=== PATIENT | male | born 1950 | race Caucasian/White ===

== ENCOUNTER → 2017-03-14 12:50 | Outpatient (CLI) | payer MEDICARE, OTHER, SELFPAY ==
[2017-03-10 16:32] LABS: BUN 14 mg/dL (7-18); Creatinine, Serum 0.89 mg/dL (0.70-1.30); EST Glomerular Filtration Rate 90 mL/min (>60); Est Glom Filt Rate - Afr Amer 109 mL/min (>60)
--- NOTE | 2017-03-14 12:54 | CT_ITS ---
STUDY: CTA OF THE ABDOMINAL AORTA REASON FOR EXAM: Male, 66 years old. Follow-up aortic aneurysm stent placement. RADIATION DOSAGE (If Supplied By Facility): CTDIvol = ( 25.45 ) mGy, DLP = ( 1279.17 ) mGycm TECHNIQUE: Axial CT angiography multi-detector data acquisition was obtained from the diaphragm to the ischial tuberosities following intravenous administration of 100ML ml of Isovue 370 contrast. Axial images and MIP images were reconstructed from the axial data set. Post-processing of the angiographic images was performed, with multiplanar reformation and 3D reconstruction. Individualized dose optimization techniques were used for this CT. TECHNICAL QUALITY: Good COMPARISON: CTA of the abdomen, July 12, 2016. Descriptors of Narrowing: None (0%) Mild (< 50%) Moderate (50-70%) Severe (70-90%) Subtotal/Total Occlusion (90-100%) Non-Evaluable (technically non-diagnostic FINDINGS: Abdominal aorta: Minimal atherosclerotic changes of the upper abdominal aorta. There is an aortic stent beginning at the level of the diaphragm which extends down to just below the level of the off take off of the renal arteries. This is patent. There is a aortobiiliac stent arising 2.4 cm below the lower edge of the superior stent. Contrast is seen within the stent. There is no extravasation of contrast outside the confines of the stent. The fusiform infrarenal aneurysm measuring 4.8 x 5 cm is occluded around the stent. Celiac and superior mesenteric arteries: No demonstrated narrowing. Inferior mesenteric artery: The origin of the KEYANA is not visualized. Right renal artery(arteries): No demonstrated narrowing. Left renal artery(arteries): No demonstrated narrowing. Right common iliac artery: No demonstrated narrowing. Right external iliac artery: Atherosclerotic changes with mild stenosis. Right internal iliac artery: Atherosclerotic changes with mild stenosis. Left common iliac artery: No demonstrated narrowing. Left external iliac artery: Atherosclerotic changes with mild stenosis. Left internal iliac artery: Atherosclerotic changes with mild stenosis. Lung bases are clear. The heart appears normal in size. The liver is mildly enlarged and demonstrates mild fatty infiltration. There is no mass. Normal gallbladder and biliary ductal system. There is mild splenomegaly. Normal pancreas. Normal adrenal glands. Normal kidneys. Normal IVC and retroperitoneum. Normal stomach. Normal small bowel. Normal colon. Normal appendix. The deep pelvic structures are incompletely visualized due to scatter artifact from a left artificial hip. The urinary bladder appears grossly unremarkable. There are calcifications centrally within a minimally enlarged prostate. There is no pelvic lymphadenopathy. No free air or free fluid is seen within the peritoneal cavity. There is an umbilical hernia of omental fat. There are bilateral inguinal hernias of omental fat. There are degenerative changes of the lumbar spine. CT/CT ANGIO ABD&PEL W/O&W/DYE IMPRESSION: 1. Interval placement of a aortobiiliac stent. The stent is patent. The fusiform infrarenal abdominal aortic aneurysm is occluded. There is no evidence of leakage of contrast outside the confines of the stent. 2. Patent upper abdominal aortic stent, not seen on prior study. 3. No other major change in findings from the previous exam. Electronically Signed: Bebeto Gomez DO at 16:58 EST Tel [phone], Service support ,
== END ==
PROVIDERS: Family Provider Family Medicine; PCP Family Medicine; Visit Provider Surgery Vascular Surgery
DX: I71.4 Abdominal aortic aneurysm, without rupture (principal); I10 Essential (primary) hypertension; Z85.05 Personal history of malignant neoplasm of liver; E78.00 Pure hypercholesterolemia, unspecified
CPT/HCPCS: 36415; 74174; 82565; 84520; Q9967

== ENCOUNTER → 2017-03-17 13:43 | Outpatient (CLI) | payer MEDICARE, OTHER, SELFPAY ==
--- NOTE | 2017-03-19 11:35 | LEAS ---
Arterial Study - Arterial Study Arterial Study: Date of scan 03/17/[address] Shelley Indication history of aortic stent with hypertension hyperlipidemia previous smoker Interpretation Right lower extremity normal pulsatile flow at the ankle up to the digits duplex with triphasic flow at both vessels at the ankle with an IVONNE 1.1 for the posterior tibial 1.20 the dorsalis pedis brachial index 0.74 next Left lower extremity normal pulsatile flow noted at the ankle duplex showing triphasic flow both vessels at the at the ankle with an IVONNE 1.03 the posterior tibial 0.9 for the dorsalis pedis. Digital brachial index 0.91 In pression: 1. Bilateral lower extremities with no evidence of significant arterial occlusive disease at rest with an IVONNE 1.14 on the right 1.03 on the left with bilateral triphasic flow
== END ==
PROVIDERS: Family Provider Family Medicine; PCP Family Medicine; Visit Provider Surgery Vascular Surgery
DX: I71.4 Abdominal aortic aneurysm, without rupture (principal); I10 Essential (primary) hypertension; Z85.05 Personal history of malignant neoplasm of liver; E78.00 Pure hypercholesterolemia, unspecified; I70.213 Atherosclerosis of native arteries of extremities with intermittent claudication, bilateral legs
CPT/HCPCS: 93922

== ENCOUNTER → 2017-03-24 15:34 | Outpatient (CLI) | payer MEDICARE, OTHER, SELFPAY ==
[2017-03-24 18:32] LABS: Absolute Lymphocyte Count 1.33 X10^3/ul (0.83-4.51); Absolute Neutrophil Count 3.4 X10^3/uL (2.0-7.7); Basophil# 0.03 X10^3/uL; Basophil% 0.6 % (0-1); Eosinophils% 3.7 % (0-5); Hematocrit 40.3 % (40-54); Hemoglobin 13.4 g/dl (13.0-16.5); Lymphocyte # 1.33 X10^3/ul (4.0); Lymphocyte % 24.7 % (19-41); Mean Corp Hgb Conc 33.3 g/gl (32-36); Mean Corpuscular Hgb 32.9 pg (27.0-32.0); Mean Platelet Vol. 10.7 fl (6.2-12.0); Monocyte# 0.46 X10^3/uL; Monocyte% 8.5 % (0-10); Neutrophil # 3.36 X10^3/uL (2.7-7.7); Neutrophil % 62.3 % (47-70); Platelet Count 166 K/mm3 (150-450); RBC Distribution Width CV 14.2 % (11.6-14.6); RBC Distribution Width SD 50.3 fl (35.1-43.9); Red Blood Count 4.07 M/mm3 (4.6-6.2); White Blood Count 5.4 K/mm3 (4.4-11.0)
[2017-03-24 18:51] LABS: Microalbumin,Random Urine 9.6 mg/L (NO RANGE EST.)
[2017-03-24 18:54] LABS: POSITIVE COUNT NO; POSITIVE DIFFERENTIAL NO; POSITIVE MORPHOLOGY NO
[2017-03-24 19:00] LABS: Hemoglobin A1c 6.4 % (4.2-6.3)
[2017-03-24 19:04] LABS: ALB/GLOB Ratio 0.6 RATIO (0.9-2.4); AST(SGOT) 75 U/L (15-37); Alanine Aminotransfer ALT/SGPT 77 U/L (16-61); Albumin, Serum 3.5 g/dL (3.2-5.0); Alkaline Phosphatase 102 U/L (45-117); Anion Gap 12 (5-15); BUN 17 mg/dL (7-18); BUN/Creat Ratio 19.6 RATIO (10-20); Calcium,Total 9.1 mg/dL (8.5-10.1); Chloride 106 mmol/L (98-107); Cholesterol 200 mg/dL (200); Creatinine, Serum 0.87 mg/dL (0.70-1.30); EST Glomerular Filtration Rate 93 mL/min (>60); Est Glom Filt Rate - Afr Amer 113 mL/min (>60); GGTP 417 U/L (15-85); Globulin 5.4 g/dL (2.2-4.2); Glucose 126 mg/dL (74-106); High Density Lipoprotein 36 mg/dL; Potassium 3.9 mmol/L (3.5-5.1); Protein, Total 8.9 g/dL (6.4-8.2); Sodium Level 140 mmol/L (136-145); Thyroid Stim Hormone (TSH) 3.34 uIU/mL (0.358-3.74); Triglycerides 230 mg/dL; Very Low Density Lipoprotein 46 mg/dL (5-40)
== END ==
PROVIDERS: Family Provider Family Medicine; PCP Family Medicine; Visit Provider Family Medicine
DX: Z00.00 Encounter for general adult medical examination without abnormal findings (principal); E88.81 Metabolic syndrome and other insulin resistance; K76.9 Liver disease, unspecified
CPT/HCPCS: 36415; 80053; 80061; 82043; 82570; 82977; 83036; 84443; 85025

== ENCOUNTER → 2017-03-28 09:39 | Outpatient (CLI) | payer MEDICARE, OTHER, SELFPAY ==
--- NOTE | 2017-03-28 09:43 | US_ITS ---
STUDY: ABDOMINAL ULTRASOUND - RIGHT UPPER QUADRANT REASON FOR VISIT: Male, 66 years old. Hepatomegaly. Known MILNER. TECHNIQUE: Ultrasound evaluation of the right upper quadrant was performed with real-time and static clarke-scale imaging. TECHNICAL QUALITY: Adequate. COMPARISON: None. FINDINGS: Liver: The liver is mildly enlarged and measures 18.7 cm. There is increased echogenicity consistent with fatty infiltration. The bile ducts are within normal limits. There is hepatic color flow. The direction of portal flow is hepatopetal. There is no demonstrated mass lesion. Gallbladder: Normal distended gallbladder. The gallbladder wall measures 2.2 mm. There is a negative sonographic Rashid's sign. There is no pericholecystic fluid. There are no gallstones. Common Bile Duct (C.B.D.): The common bile duct measures 2.7 mm. Pancreas: There is nonvisualization of the pancreas due to overlying bowel gas. Right Kidney: Normal size of the right kidney. The right kidney measures 13.3 cm x 6 x 4.3 cm. Normal renal cortex. The right cortex measures 1.4 cm. There is no demonstrated renal mass or cyst. There is no right hydronephrosis. US/Abdomen Limited IMPRESSION: Mild hepatomegaly and fatty infiltration of the liver. Electronically Signed: Chapito Burt MD at 13:51 EST Tel [phone], Service support ,
== END ==
PROVIDERS: Family Provider Family Medicine; PCP Family Medicine; Visit Provider Family Medicine
DX: K76.9 Liver disease, unspecified (principal)
CPT/HCPCS: 76705

== ENCOUNTER 2017-06-25 06:55 | Day surgery (SDC) | payer MEDICARE, OTHER, SELFPAY ==
--- NOTE | 2017-06-25 | COLBX_PTH ---
PATIENT: NARCISO SCHMIDT LOC: EN U#:[id number] AGE/SX: 67/M ROOM: RE06/25/[address]: Dr. Lavon Gongora MD : 1950 BED: DIS: 06/25/2017 SPEC #: [id number] RECD: 06/25/17 13:01 STATUS: ADA JAMEL #: [id number] [place]: 06/25/17 00:[address]: Lavon Gongora DEPT: SURGICAL PATHOLOGY RECD BY: Fawn Tang ENTERED: 06/25/17 13:13 SP TYPE: COLON BX OTHR DR: Dr. Vitaliy Loredo MD Tissues: Rectum, NOS Procedures: Surgery Specimen Level IV HEADER OPERATION: Colonoscopy PRE-OP DIAGNOSIS: History polyps TISSUE SUBMITTED: Rectal polyps biopsy (2) MICROSCOPIC DIAGNOSIS Rectal polyps, biopsy: Fragments of tubular adenoma. SJ:shailesh 06/26/17 MICROSCOPIC DESCRIPTION Slides are reviewed. GROSS DESCRIPTION Received in fixative is one container labeled with the patient's name and designated rectal polyps biopsy. The specimen consists of multiple irregular fragments of light boswell soft tissue that in aggregate measure 1.2 x 0.4 x 0.1 cm. The specimen is totally submitted in one cassette. / SJ:shailesh 06/25/17 TC:1 CPT: 69945
[2017-06-25 07:17] VITALS: BP 120/75; PULSE 54; RESP 14; TEMP 36.2; O2SAT 97; BMI 32.8
--- NOTE | 2017-06-25 08:25 | PCM.HP.STD ---
Problem List (1) Personal history of colonic polyps Status: Acute History of Present Illness Date of Admission: 06/25/17 The patient is a 67 year old M who presents for colonoscopy. Patient had a colonoscopy approximately 5-[address] Rashid and was noted to have polyps at that time. Recommended that he have a follow-up colonoscopy within 5 years. Past Medical History Allergies CAT HAIR Allergy (Uncoded 06/20/17 15:59) Itching Home Medications: Ambulatory Orders Medication Instructions Recorded Metformin(XR) [Glucophage Xr] 1,000 mg PO BID 03/16/16 Multivitamin [Multiple Vitamins] 1 each PO DAILY 06/20/17 Nebivolol HCl [Bystolic (Beta 20 mg PO DAILY 06/20/17 Yolande)] Smoking Status: Former smoker Tobacco Use: Cigarettes Review of Systems Cardiovascular: Denies: Chest Pain, Chest Pressure, Chest Tightness, Palpitations Respiratory: Denies: Cough, Hemoptysis, Shortness of breath at rest, Shortness of breath upon exertion, Wheezing Gastrointestinal: Denies: Abdominal Pain, Constipation, Diarrhea, Hematemesis, Nausea, Melena, Vomiting VTE Information - Inpt Only VTE Present on Admission: No VTE Mechan Device Prophylaxis: None VTE Pharm Prophylaxis ordered?: No Reason prophylaxis not ordered:: Treatment Not Indicated Patient Problems: Active and Suspected Problems Personal history of colonic polyps (Acute) - Physical Exam Lungs: Clear to auscultation Cardiovascular: Regular rate, Regular Rhythm, No murmurs Abdomen: Bowel Sounds Present, Soft, Non Tender, Non-Distended Vital Signs Temp Pulse Resp BP Pulse Ox 97.2 F L 54 L 14 120/75 97 06/25/17 07:17 06/25/17 07:17 06/25/17 07:17 06/25/17 07:17 06/25/17 07:17 Oxygen Delivery Method Room Air Weight: 229 lb 0.964 oz Body Mass Index (BMI) 32.8 Assessment/Plan Active and Suspected Problems Personal history of colonic polyps (Acute) My plan is perform a colonoscopy. Risk benefits were reviewed with the patient prior to the procedure and he agrees to proceed.
--- NOTE | 2017-06-25 08:28 | PCM.OPRPT ---
Problem List (1) Personal history of colonic polyps Status: Acute Report of Operation Date of Procedure: 06/25/17 Pre-Operative Diagnosis: Z86.010 personal history of colonic polyps Post-Operative Diagnosis: Same Surgery/Procedure Performed:: 54412 colonoscopy with ablation of tumors of the rectum Type of Anesthesia:: MAC Anesthesiologist: Sang Pool Description of Procedure: Patient was brought into the endoscopy suite. Placed in the left lateral decubitus position. Was given graded anesthesia. Colonoscope was inserted into the rectum. The scope was directed through the sigmoid colon, descending colon, transverse colon, ascending colon, to the cecum. Operative findings: 1. Cecum: Normal appearance no mass lesions normal ileocecal valve. 2. Ascending colon: Normal appearance no mass lesions. 3. Transverse colon: Normal appearance no mass lesions. 4. Descending colon: Normal appearance no mass lesions. 5. Sigmoid colon: Normal appearance no mass lesions scattered diverticuli were identified. 6. Rectum: 2 small polyps were identified. These were ablated with multiple biopsies down to the mucosal subsurface. They were placed in a single jar of the rectum. Good hemostasis was noted. Rest of the rectum appeared normal. He was noted to have a few internal hemorrhoids. Scope was withdrawn digital rectal exam was performed showing a smooth prostate with no masses and no masses in the anus. Patient will need to have another colonoscopy in 3 years. - Admit VTE Documentation VTE Present on Admission: No VTE Mechan Device Prophylaxis: SCD's, None Reason prophylaxis not ordered:: Treatment Not Indicated
[2017-06-25 08:29] VITALS: BP 114/59; BP 120/75; PULSE 55; RESP 16; TEMP 36.1; O2SAT 100
[2017-06-25 08:30] VITALS: BP 120/75; BP 125/64; PULSE 52; RESP 16; O2SAT 96
[2017-06-25 08:40] VITALS: BP 120/75; BP 133/73; PULSE 50; RESP 16; O2SAT 98
[2017-06-25 08:45] VITALS: BP 120/75; BP 134/81; PULSE 48; RESP 16; TEMP 36.3; O2SAT 97
[2017-06-25 09:04] VITALS: BP 120/75
== END 2017-06-25 09:23 | disposition home or self-care (01) ==
LOC: EN 06:56 → AC 06:57
PROVIDERS: Family Provider Family Medicine; PCP Family Medicine; Visit Provider Surgery
PROC: 0DJD8ZZ Inspection of Lower Intestinal Tract, Via Natural or Artificial Opening Endoscopic (ICD-10-PCS; CPT 45378; principal; 2017-06-25 07:55)
DX: D12.8 Benign neoplasm of rectum (principal); Z86.010 Personal history of colon polyps; I10 Essential (primary) hypertension; G47.30 Sleep apnea, unspecified; E88.81 Metabolic syndrome and other insulin resistance; Z87.891 Personal history of nicotine dependence; Z79.84 Long term (current) use of oral hypoglycemic drugs; Z79.899 Other long term (current) drug therapy
CPT/HCPCS: 45388; 88305; J7120; J1610

== ENCOUNTER → 2017-09-22 14:27 | Outpatient (CLI) | payer MEDICARE, OTHER, SELFPAY ==
[2017-09-22 15:19] LABS: Absolute Lymphocyte Count 1.35 X10^3/ul (0.83-4.51); Absolute Neutrophil Count 3.1 X10^3/uL (2.0-7.7); Basophil# 0.03 X10^3/uL; Basophil% 0.6 % (0-1); Eosinophil# 0.21 X10^3/uL; Eosinophils% 4.1 % (0-5); Hematocrit 40.4 % (40-54); Hemoglobin 13.5 g/dl (13.0-16.5); Lymphocyte # 1.35 X10^3/ul (4.0); Lymphocyte % 26.3 % (19-41); Mean Corp Hgb Conc 33.4 g/gl (32-36); Mean Corpuscular Volume 98.8 fL (80-94); Mean Platelet Vol. 10.1 fl (6.2-12.0); Monocyte% 7.8 % (0-10); Neutrophil # 3.14 X10^3/uL (2.7-7.7); POSITIVE COUNT NO; POSITIVE DIFFERENTIAL NO; POSITIVE MORPHOLOGY NO; Platelet Count 138 K/mm3 (150-450); RBC Distribution Width CV 13.6 % (11.6-14.6); RBC Distribution Width SD 48.6 fl (35.1-43.9); Red Blood Count 4.09 M/mm3 (4.6-6.2); White Blood Count 5.1 K/mm3 (4.4-11.0)
[2017-09-22 15:29] LABS: ALB/GLOB Ratio 0.7 RATIO (0.9-2.4); AST(SGOT) 60 U/L (15-37); Alanine Aminotransfer ALT/SGPT 62 U/L (16-61); Albumin, Serum 3.5 g/dL (3.2-5.0); Alkaline Phosphatase 80 U/L (45-117); Anion Gap 11 (5-15); BUN 11 mg/dL (7-18); BUN/Creat Ratio 12.2 RATIO (10-20); Calcium,Total 8.5 mg/dL (8.5-10.1); Chloride 107 mmol/L (98-107); EST Glomerular Filtration Rate 89 mL/min (>60); Est Glom Filt Rate - Afr Amer 107 mL/min (>60); Globulin 5.1 g/dL (2.2-4.2); Glucose 116 mg/dL (74-106); Potassium 4.5 mmol/L (3.5-5.1); Protein, Total 8.6 g/dL (6.4-8.2); Sodium Level 140 mmol/L (136-145); Triglycerides 243 mg/dL
[2017-09-22 15:36] LABS: Hemoglobin A1c 5.5 % (4.2-6.3)
== END ==
PROVIDERS: Family Provider Family Medicine; PCP Family Medicine; Visit Provider Family Medicine
DX: K76.9 Liver disease, unspecified (principal); E88.81 Metabolic syndrome and other insulin resistance
CPT/HCPCS: 36415; 80053; 83036; 84478; 85025

== ENCOUNTER → 2018-03-02 14:43 | Outpatient (CLI) | payer MEDICARE, OTHER, SELFPAY ==
[2018-03-02 16:31] LABS: Anion Gap 10 (5-15); BUN 17 mg/dL (7-18); BUN/Creat Ratio 18.3 RATIO (10-20); Calcium,Total 8.7 mg/dL (8.5-10.1); Chloride 107 mmol/L (98-107); Creatinine, Serum 0.93 mg/dL (0.70-1.30); EST Glomerular Filtration Rate 86 mL/min (>60); Est Glom Filt Rate - Afr Amer 104 mL/min (>60); Glucose 137 mg/dL (74-106); Potassium 4.1 mmol/L (3.5-5.1); Sodium Level 139 mmol/L (136-145)
--- OUTSIDE RECORDS SUMMARY | 2018-05-05 02:55 | XMS RPT_ITS ---
:1950 Author Organization OHIP Support Name Relationship Address Phone JESSICA BABIN Unavailable [address] + [place] [address] R Unavailable Unavailable Unavailable GISEL BABINANNE Unavailable [address] + [place] [address] R Unavailable Unavailable Unavailable BABINGISELJESSICA Unavailable [address] + [place] [address] R Unavailable Unavailable Unavailable TALYA JESSICA Unavailable [address] + [place] [address] R Unavailable Unavailable Unavailable LEONOR BABINE Unavailable [address] + [place] [address] R Unavailable Unavailable Unavailable GISEL BABINANNE Unavailable [address] + [place] [address] R Unavailable Unavailable Unavailable GISEL BABINANNE Unavailable [address] + [place] [address] R Unavailable Unavailable Unavailable TALYA JESSICA Unavailable [address] + [place] [address] R Unavailable Unavailable Unavailable TALYA JESSICA Unavailable [address] + [place] [address] R Unavailable Unavailable Unavailable TALYA JESSICA Unavailable [address] + [place] [address] R Unavailable Unavailable Unavailable TALYA JESSICA Unavailable [address] + [place] [address] R Unavailable Unavailable Unavailable Care Team Providers Name Role Phone RANJIT INIGUEZ Referring Unavailable NAVA CARDONA (PT) Attending Unavailable RANJIT INIGUEZ Referring Unavailable Vitaliy Loredo Attending Unavailable Vitaliy Loredo Primary Care Unavailable Chaka Shelley Attending Unavailable Chaka Shelley Referring Unavailable Loredo, Vitaliy Primary Care Unavailable Chaka Shelley Attending Unavailable ShelleyChaka richter Referring Unavailable Loredo, Vitaliy Primary Care Unavailable Loredo, Vitaliy Attending Unavailable Loredo, Vitaliy Primary Care Unavailable Loredo, Vitaliy Attending Unavailable Loredo, Vitaliy Referring Unavailable Loredo, Vitaliy Primary Care Unavailable Nurse, Surgery Attending Unavailable Loredo, Vitaliy Referring Unavailable Nurse, Surgery Attending Unavailable Loredo, Vitaliy Referring Unavailable Fransisca, Lavon Attending Unavailable Loredo, Vitaliy Primary Care Unavailable [place], Lavon Referring Unavailable [place], Lavon Attending Unavailable [place], Lavon Referring Unavailable Loredo, Vitaliy Primary Care Unavailable [place], Lavon Consulting Unavailable [place], Lavon Attending Unavailable Loredo, Vitaliy Referring Unavailable Loredo, Vitaliy Attending Unavailable Loredo, Vitaliy Primary Care Unavailable PROBLEMS PROBLEMS DATE TYPE CONDITION / CODE ATTENDING STATUS SOURCE 03/14/2017 Unknown I71.4 - Chaka Shelley Active [place] Abdominal aortic [facility] aneurysm, [facility] without rupture Repository / I71.4(ICD-10) PROCEDURES PROCEDURES No Procedure Records FoundRESULTS RESULTS BASIC METABOLIC Collected: 03/02/2018 Status: F Source: [place] PROFILE (BMP) 2:46 PM [facility] REPOSITORY TYPE CODE TESTS RESULT OUT OF RANGE REFERENCE UNITS LAB L501.0100 74-106 mg/dL High GLU 137 Result Comment: Fasting Glucose result greater than or equal to 126 mg/dL suggests DIABETES MELLITUS per A.D.A. criteria. Please note revised GLUCOSE reference range effective 2017. LAB L501.1000 7-18 mg/dL Normal BUN 17 LAB L501.1100 0.70-1.30 mg/dL Normal CREAT,SERUM 0.93 Result Comment: The validity of the calculated GFR AND GFRAA in patients over 70 years has not been determined. Clinical correlation is essential. LAB L501.1110 >60 mL/min Normal EST GFR 86 Result Comment: Non- GFR Calc LAB L501.1115 >60 mL/min Normal EST GFR - AA 104 Result Comment: GFR Calc LAB L501.1300 10-20 RATIO Normal BUN/CRE 18.3 LAB L501.2200 8.5-10.1 mg/dL CA Normal 8.7 LAB L501.5300 136-145 mmol/L NA Normal 139 LAB L501.5600 3.5-5.1 mmol/L K Normal 4.1 LAB L501.5900 98-107 mmol/L CL Normal 107 LAB L501.6100 21.0-32.0 mmol/L Normal CO2 22.0 LAB L501.6200 5-15 Normal GAP 10 Performed By: #### L500.2500 #### [facility] [address] [place], [address] CBC W/DIFF, AUTOMATED Collected: 09/22/2017 Status: F Source: [place] 2:30 PM [facility] REPOSITORY TYPE CODE TESTS RESULT OUT OF RANGE REFERENCE UNITS LAB L100.1000 4.4-11.0 K/mm3 Normal WBC 5.1 LAB L100.1200 4.6-6.2 M/mm3 Low RBC 4.09 LAB L100.1300 13.0-16.5 g/dl Normal HGB 13.5 LAB L100.1400 40-54 % Normal HCT 40.4 LAB L100.1500 80-94 fL High MCV 98.8 LAB L100.1600 27.0-32.0 pg High MCH 33.0 LAB L100.1700 32-36 g/gl Normal MCHC 33.4 LAB L100.1810 11.6-14.6 % Normal RDW CV 13.6 LAB L100.1820 35.1-43.9 fl High RDW SD 48.6 LAB L100.1900 150-450 K/mm3 Low PLT 138 LAB L100.2000 6.2-12.0 fl Normal MPV 10.1 LAB L100.2100 47-70 % Normal NEUT% 61.0 LAB L100.2200 19-41 % Normal LY% 26.3 LAB L100.2300 0-10 % Normal MONO% 7.8 LAB L100.2400 0-5 % Normal EO% 4.1 LAB L100.2500 0-1 % Normal BASO% 0.6 LAB L100.2550 0.0-0.9 % Normal IM GRAN % 0.200 Result Comment: IG% - Immature Granulocytes (promyelocytes, myelocytes and metamyelocytes) > 1% indicates that a LEFT SHIFT is Present. LAB L100.2620 2.0-7.7 X10 3/uL Normal Absolute Neut 3.1 LAB L100.2720 0.83-4.51 X10 3/ul Normal Absolute Lymph 1.35 Performed By: #### L100.0100 #### [facility] [place], [address] COMPREHENSIVE METABOLIC Collected: 09/22/2017 Status: F Source: [place] [facility] 2:30 PM [facility] REPOSITORY TYPE CODE TESTS RESULT OUT OF RANGE REFERENCE UNITS LAB L501.0100 74-106 mg/dL High GLU 116 Result Comment: Fasting Glucose result from 100 to 125 mg/dL suggests IMPAIRED HOMEOSTASIS per A.D.A. criteria. Please note revised GLUCOSE reference range effective 2017. LAB L501.1000 7-18 mg/dL Normal BUN 11 LAB L501.1100 0.70-1.30 mg/dL Normal CREAT,SERUM 0.90 Result Comment: The validity of the calculated GFR AND GFRAA in patients over 70 years has not been determined. Clinical correlation is essential. LAB L501.1110 >60 mL/min Normal EST GFR 89 Result Comment: Non- GFR Calc LAB L501.1115 >60 mL/min Normal EST GFR - AA 107 Result Comment: GFR Calc LAB L501.1300 10-20 RATIO Normal BUN/CRE 12.2 LAB L501.1500 6.4-8.2 g/dL High T PROT 8.6 LAB L501.1800 3.2-5.0 g/dL Normal ALB 3.5 LAB L501.1950 2.2-4.2 g/dL High GLOB 5.1 LAB L501.2000 0.9-2.4 RATIO Low A/G 0.7 LAB L501.2200 8.5-10.1 mg/dL CA Normal 8.5 LAB L501.4100 15-37 U/L High AST 60 LAB L501.4305 45-117 U/L Normal ALK P 80 LAB L501.4405 16-61 U/L High ALT 62 LAB L501.4600 0.20-1.00 mg/dL T Normal BILI 1.00 LAB L501.5300 136-145 mmol/L NA Normal 140 LAB L501.5600 3.5-5.1 mmol/L K Normal 4.5 LAB L501.5900 98-107 mmol/L CL Normal 107 LAB L501.6100 21.0-32.0 mmol/L Normal CO2 22.0 LAB L501.6200 5-15 Normal GAP 11 Performed By: #### L500.4050, L501.5000 #### [facility] [address] [place], [address] TRIGLYCERIDES Collected: 09/22/2017 Status: F Source: [place] 2:30 PM [facility] REPOSITORY TYPE CODE TESTS RESULT OUT OF RANGE REFERENCE UNITS LAB L501.5000 mg/dL High TRIG 243 Result Comment: The drugs N-Acetylcysteine and Metamizole may falsely depress this assay. Serum Triglycerides Reference Interval Normal <150 mg/dL Borderline high 150 - 199 mg/dL High 200 - 499 mg/dL Very High > or = 500 mg/dL Performed By: #### L500.4050, L501.5000 #### [facility] [address] [place], [address] HEMOGLOBIN A1C Collected: 09/22/2017 Status: F Source: [place] 2:30 PM [facility] REPOSITORY TYPE CODE TESTS RESULT OUT OF RANGE REFERENCE UNITS LAB L501.9985 4.2-6.3 % Normal HGB A1C 5.5 Performed By: #### L501.9985 #### [facility] [address] [place], [address] SURGERY VISIT REPORT Observed: 08/18/2017 Status: F Source: [place] 12:46 PM [facility] REPOSITORY [facility] [address] [facility] [place] [address] OFFICE VISIT Date of Service: 07/02/17 MR#: [id number] Acct: [id number] Name: NARCISO WALL Rep #: [id number] : 1950 Provider: Lavon Gongora MD Age/Sex: 67/M Location: [facility] Status: Signed Intake Intake Visit Reasons: cscope results Chief Complaint: post c-scope Hide Puller Required: No Is patient in pain?: No Allergies CAT HAIR Allergy (Uncoded 06/20/17 15:59) Itching Medications Metformin(XR) [Glucophage Xr] 1,000 mg PO BID 03/16/16 [History Confirmed 06/25/17] Multivitamin [Multiple Vitamins] 1 ea PO DAILY 06/20/17 [History Confirmed 06/25/17] Nebivolol HCl [Bystolic (Beta Yolande)] 20 mg PO DAILY 06/20/17 [History Confirmed 06/25/17] PFSH Medical History Personal history of colonic polyps (Acute) Surgical History S/P colonoscopy (Acute 06/2017) Social History Smoking Status: Former smoker HPI HPI HPI: NARCISO WALL, is a 67 M who presents to the office today for patient status post a colonoscopy completed on 06/25/2017. Patient was noted to have fragments of a tubular adenoma in his rectum. He is not complaining of any abdominal pains has been moving his bowels effectively. Exam GI Other: Abdomen is soft and nontender Assessment AND Plan Problems 1. Adenomatous polyp of colon, unspecified part of colon D12.6 Plan Patient will need to have another colonoscopy in 3 years. Coding Level of Care Code Off vis,est,level 2 Diagnoses Adenomatous polyp of colon, unspecified part of colon D12.6 Colon polyp type: adenomatous Colon location: unspecified part of colon 08/18/17 1246 <Electronically signed by Lavon Gongora MD> Date Lavon Gongora MD Cosigner Signature: Date (if applicable) CC: Vitaliy Loredo MD OPERATIVE REPORT Observed: 06/25/2017 Status: F Source: [place] 8:32 AM [facility] REPOSITORY [facility] Medical Records Department [address] [place] [address] Operative Report 06/25/17 0828 MR#: [id number] Acct: [id number] Name: NARCISO WALL Rep #: [id number] : 1950 67 From: Lavon Gongora MD PCP: Vitaliy Loredo MD Status: REG [place] Y Location: AC12-1 Problem List (1) Personal history of colonic polyps Status: Acute Report of Operation Date of Procedure: 06/25/17 Pre-Operative Diagnosis: Z86.010 personal history of colonic polyps Post-Operative Diagnosis: Same Surgery/Procedure Performed:: 52719 colonoscopy with ablation of tumors of the rectum Type of Anesthesia:: MAC Anesthesiologist: Sang Pool Description of Procedure: Patient was brought into the endoscopy suite. Placed in the left lateral decubitus position. Was given graded anesthesia. Colonoscope was inserted into the rectum. The scope was directed through the sigmoid colon, descending colon, transverse colon, ascending colon, to the cecum. Operative findings: 1. Cecum: Normal appearance no mass lesions normal ileocecal valve. 2. Ascending colon: Normal appearance no mass lesions. 3. Transverse colon: Normal appearance no mass lesions. 4. Descending colon: Normal appearance no mass lesions. 5. Sigmoid colon: Normal appearance no mass lesions scattered diverticuli were identified. 6. Rectum: 2 small polyps were identified. These were ablated with multiple biopsies down to the mucosal subsurface. They were placed in a single jar of the rectum. Good hemostasis was noted. Rest of the rectum appeared normal. He was noted to have a few internal hemorrhoids. Scope was withdrawn digital rectal exam was performed showing a smooth prostate with no masses and no masses in the anus. Patient will need to have another colonoscopy in 3 years. - Admit VTE Documentation VTE Present on Admission: No VTE Mechan Device Prophylaxis: SCD's, None Reason prophylaxis not ordered:: Treatment Not Indicated 06/25/17 0832 <Electronically signed by Lavon Gongora MD> Date Lavon Gongora MD CC: Lavon Gongora MD; Vitaliy Loredo MD Signed HISTORY AND PHYSICAL Observed: 06/25/2017 Status: F Source: [place] EXAM 8:27 AM [facility] REPOSITORY [facility] Medical Records Department [address] [place] [id number] History and Physical 06/25/17 0825 MR#: [id number] Acct: [id number] Name: NARCISO WALL Rep #: [id number] : 1950 67 From: Lavon Gongora MD PCP: Vitaliy Loredo MD Status: REG [place] Location: [place] [address] Problem List (1) Personal history of colonic polyps Status: Acute History of Present Illness Date of Admission: 06/25/17 The patient is a 67 year old M who presents for colonoscopy. Patient had a colonoscopy approximately 5-[address] Rashid and was noted to have polyps at that time. Recommended that he have a follow-up colonoscopy within 5 years. Past Medical History Allergies CAT HAIR Allergy (Uncoded 06/20/17 15:59) Itching Home Medications: Ambulatory Orders Medication Instructions Recorded Smoking Status: Former smoker Tobacco Use: Cigarettes Review of Systems Cardiovascular: Denies: Chest Pain, Chest Pressure, Chest Tightness, Palpitations Respiratory: Denies: Cough, Hemoptysis, Shortness of breath at rest, Shortness of breath upon exertion, Wheezing Gastrointestinal: Denies: Abdominal Pain, Constipation, Diarrhea, Hematemesis, Nausea, Melena, Vomiting VTE Information - Inpt Only VTE Present on Admission: No VTE Mechan Device Prophylaxis: None VTE Pharm Prophylaxis ordered?: No Reason prophylaxis not ordered:: Treatment Not Indicated Patient Problems: Active and Suspected Problems Personal history of colonic polyps (Acute) - Physical Exam Lungs: Clear to auscultation Cardiovascular: Regular rate, Regular Rhythm, No murmurs Abdomen: Bowel Sounds Present, Soft, Non Tender, Non-Distended Vital Signs Temp Pulse Resp BP Pulse Ox 97.2 F L 54 L 14 120/75 97 06/25/17 07:17 06/25/17 07:17 06/25/17 07:17 06/25/17 07:17 06/25/17 07:17 Oxygen Delivery Method Room Air Weight: 229 lb 0.964 oz Body Mass Index (BMI) 32.8 Assessment/Plan Active and Suspected Problems Personal history of colonic polyps (Acute) My plan is perform a colonoscopy. Risk benefits were reviewed with the patient prior to the procedure and he agrees to proceed. 06/25/17 0827 <Electronically signed by Lavon Gongora MD> Date Lavon Gongora MD [facility] Signature: Date (if applicable) CC: Lavon Gongora MD; Vitaliy Loredo MD Signed COLON BIOPSY (CHOOSE Observed: 06/25/2017 Status: F Source: [facility]) 12:00 AM [facility] REPOSITORY Patient: NARCISO WALL : 1950 (67/M) Acct Num: [id number] Phys: Fransisca GREEN,Lavon Unit Num: [id number] Loc: EN Specimen: Received: 06/25/17 - 1301 Spec Type: COLON BX TISSUES TISSUES: Rectum, NOS GROSS DESCRIPTION Received in fixative is one container labeled with the patient's name and designated rectal polyps biopsy. The specimen consists of multiple irregular fragments of light boswell soft tissue that in aggregate measure 1.2 x 0.4 x 0.1 cm. The specimen is totally submitted in one cassette. / SJ:shailesh 06/25/17 TC:1 CPT: 34078 HEADER OPERATION: Colonoscopy PRE-OP DIAGNOSIS: History polyps TISSUE SUBMITTED: Rectal polyps biopsy (2) MICROSCOPIC DESCRIPTION Slides are reviewed. MICROSCOPIC DIAGNOSIS Rectal polyps, biopsy: Fragments of tubular adenoma. SJ:shailesh 06/26/17 Signed Greyson Paul 06/26/17 <signature on file> Performed By: #### PCOLBX #### [facility] [address] [place], [address] ABDOMEN LIMITED Observed: 03/28/2017 Status: F Source: [place] 9:43 AM [facility] REPOSITORY [facility] Imaging Services [address] [place] [address] Abdomen Limited MR#: [id number] Acct: [id number] Name: NARCISO WALL Rep #: [id number] : 1950 M 66 From: Chapito Burt MD PCP: Vitaliy Loredo MD Status: REG CLI Study: Abdomen Limited Date of Exam: 03/28/17 Exam# [id number] Ordering Dr: Vitaliy Loredo MD STUDY: ABDOMINAL ULTRASOUND - RIGHT UPPER QUADRANT REASON FOR VISIT: Male, 66 years old. Hepatomegaly. Known MILNER. TECHNIQUE: Ultrasound evaluation of the right upper quadrant was performed with real-time and static clarke-scale imaging. TECHNICAL QUALITY: Adequate. COMPARISON: None. FINDINGS: Liver: The liver is mildly enlarged and measures 18.7 cm. There is increased echogenicity consistent with fatty infiltration. The bile ducts are within normal limits. There is hepatic color flow. The direction of portal flow is hepatopetal. There is no demonstrated mass lesion. Gallbladder: Normal distended gallbladder. The gallbladder wall measures 2.2 mm. There is a negative sonographic Rashid's sign. There is no pericholecystic fluid. There are no gallstones. Common Bile Duct (C.B.D.): The common bile duct measures 2.7 mm. Pancreas: There is nonvisualization of the pancreas due to overlying bowel gas. Right Kidney: Normal size of the right kidney. The right kidney measures 13.3 cm x 6 x 4.3 cm. Normal renal cortex. The right cortex measures 1.4 cm. There is no demonstrated renal mass or cyst. There is no right hydronephrosis. US/Abdomen Limited IMPRESSION: Mild hepatomegaly and fatty infiltration of the liver. Electronically Signed: Chapito Burt MD at 13:51 EST Tel [phone], Service support , CC: Vitaliy Loredo MD Data Scientist: Signed MICROALB:CREAT Collected: 03/24/2017 Status: F Source: [place] RATIO,RANDOM UR 3:35 PM [facility] REPOSITORY Order Comment: Order Date: 03/24/17 Order Info: [id number] - [place] TYPE CODE TESTS RESULT OUT OF RANGE REFERENCE UNITS LAB L501.1200 NO RANGE EST. mg/dL Normal UR CREAT 138.00 LAB L502.0500 NO RANGE EST. mg/L Normal 9.6 MICROALBUMIN ,UR LAB L502.0600 <30 mg/g CRE mg/g CRE Normal 7.0 MALB:CREAT Performed By: #### L502.0250, L100.0100, L501.9985, L500.4050, L500.4100, L501.5100, L501.9520 #### [facility] [address] [place], [place], [address] CBC W/DIFF, AUTOMATED Collected: 03/24/2017 Status: F Source: [place] 3:35 PM [facility] REPOSITORY Order Comment: Order Date: 03/24/17 Order Info: 0184-1 - CBCD TYPE CODE TESTS RESULT OUT OF RANGE REFERENCE UNITS LAB L100.1000 4.4-11.0 K/mm3 Normal WBC 5.4 LAB L100.1200 4.6-6.2 M/mm3 Low RBC 4.07 LAB L100.1300 13.0-16.5 g/dl Normal HGB 13.4 LAB L100.1400 40-54 % Normal HCT 40.3 LAB L100.1500 80-94 fL High MCV 99.0 LAB L100.1600 27.0-32.0 pg High MCH 32.9 LAB L100.1700 32-36 g/gl Normal MCHC 33.3 LAB L100.1810 11.6-14.6 % Normal RDW CV 14.2 LAB L100.1820 35.1-43.9 fl High RDW SD 50.3 LAB L100.1900 150-450 K/mm3 Normal PLT 166 LAB L100.2000 6.2-12.0 fl Normal MPV 10.7 LAB L100.2100 47-70 % Normal NEUT% 62.3 LAB L100.2200 19-41 % Normal LY% 24.7 LAB L100.2300 0-10 % Normal MONO% 8.5 LAB L100.2400 0-5 % Normal EO% 3.7 LAB L100.2500 0-1 % Normal BASO% 0.6 LAB L100.2550 0.0-0.9 % Normal IM GRAN % 0.200 Result Comment: IG% - Immature Granulocytes (promyelocytes, myelocytes and metamyelocytes) > 1% indicates that a LEFT SHIFT is Present. LAB L100.2620 2.0-7.7 X10 3/uL Normal Absolute Neut 3.4 LAB L100.2720 0.83-4.51 X10 3/ul Normal Absolute Lymph 1.33 Performed By: #### L502.0250, L100.0100, L501.9985, L500.4050, L500.4100, L501.5100, L501.9520 #### [facility] [address] [facility] [place], [place], [address] HEMOGLOBIN A1C Collected: 03/24/2017 Status: F Source: [place] 3:35 PM [facility] REPOSITORY Order Comment: Order Date: 03/24/17 Order Info: [id number] - A1C TYPE CODE TESTS RESULT OUT OF RANGE REFERENCE UNITS LAB L501.9985 4.2-6.3 % High HGB A1C 6.4 Performed By: #### L502.0250, L100.0100, L501.9985, L500.4050, L500.4100, L501.5100, L501.9520 #### [facility] [address] [facility] [place], [place], [address] COMPREHENSIVE METABOLIC Collected: 03/24/2017 Status: F Source: [facility] 3:35 PM [facility] REPOSITORY Order Comment: Order Date: 03/24/17 Order Info: [id number] - CMP Order Info: [id number] - LIPID Order Info: 2324-2 - GGTP Order Info: 3016-3 - TSH TYPE CODE TESTS RESULT OUT OF RANGE REFERENCE UNITS LAB L501.0100 74-106 mg/dL High GLU 126 Result Comment: Fasting Glucose result greater than or equal to 126 mg/dL suggests DIABETES MELLITUS per A.D.A. criteria. Please note revised GLUCOSE reference range effective 2017. LAB L501.1000 7-18 mg/dL Normal BUN 17 LAB L501.1100 0.70-1.30 mg/dL Normal CREAT,SERUM 0.87 Result Comment: The validity of the calculated GFR AND GFRAA in patients over 70 years has not been determined. Clinical correlation is essential. LAB L501.1110 >60 mL/min Normal EST GFR 93 Result Comment: Non- GFR Calc LAB L501.1115 >60 mL/min Normal EST GFR - AA 113 Result Comment: GFR Calc LAB L501.1300 10-20 RATIO Normal BUN/CRE 19.6 LAB L501.1500 6.4-8.2 g/dL High T PROT 8.9 LAB L501.1800 3.2-5.0 g/dL Normal ALB 3.5 LAB L501.1950 2.2-4.2 g/dL High GLOB 5.4 LAB L501.2000 0.9-2.4 RATIO Low A/G 0.6 LAB L501.2200 8.5-10.1 mg/dL CA Normal 9.1 LAB L501.4100 15-37 U/L High AST 75 LAB L501.4305 45-117 U/L Normal ALK P 102 LAB L501.4405 16-61 U/L High ALT 77 Result Comment: Please note revised ALT reference range effective 2017. LAB L501.4600 0.20-1.00 mg/dL Normal T BILI 0.80 LAB L501.5300 136-145 mmol/L Normal NA 140 LAB L501.5600 3.5-5.1 mmol/L Normal K 3.9 LAB L501.5900 98-107 mmol/L Normal CL 106 LAB L501.6100 21.0-32.0 mmol/L Normal CO2 22.0 LAB L501.6200 5-15 Normal GAP 12 Performed By: #### L502.0250, L100.0100, L501.9985, L500.4050, L500.4100, L501.5100, L501.9520 #### [facility] [address] [place], [address] LIPID PROFILE Collected: 03/24/2017 Status: F Source: [place] 3:35 PM [facility] REPOSITORY Order Comment: Order Date: 03/24/17 Order Info: [id number] - CMP Order Info: [id number] - LIPID Order Info: 2324-2 - GGTP Order Info: 3016-3 - TSH TYPE CODE TESTS RESULT OUT OF RANGE REFERENCE UNITS LAB L501.4900 200 mg/dL Normal CHOL 200 Result Comment: <200 mg/dL Desirable 200-240 mg/dL Borderline >240 mg/dL High Risk LAB L501.5000 mg/dL High TRIG 230 Result Comment: The drugs N-Acetylcysteine and Metamizole may falsely depress this assay. Serum Triglycerides Reference Interval Normal <150 mg/dL Borderline high 150 - 199 mg/dL High 200 - 499 mg/dL Very High > or = 500 mg/dL LAB L501.6400 mg/dL Low HDL 36 Result Comment: The drugs N-Acetylcysteine and Metamizole may falsely depress this assay. Reference Range HDL <40 mg/dL Low HDL Cholesterol HDL >or= 60 mg/dL High HDL Cholesterol LAB L501.6500 0-130 mg/dL Normal LDL 118 LAB L501.6600 5-40 mg/dL High VLDL 46 Performed By: #### L502.0250, L100.0100, L501.9985, L500.4050, L500.4100, L501.5100, L501.9520 #### [facility] [address] [place], [place], [id number] GGTP Collected: 03/24/2017 Status: F Source: [place] 3:35 PM [facility] REPOSITORY Order Comment: Order Date: 03/24/17 Order Info: [id number] - CMP Order Info: [id number] - LIPID Order Info: [id number] - GGTP Order Info: 3016-3 - TSH TYPE CODE TESTS RESULT OUT OF RANGE REFERENCE UNITS LAB L501.5100 15-85 U/L High GGTP 417 Performed By: #### L502.0250, L100.0100, L501.9985, L500.4050, L500.4100, L501.5100, L501.9520 #### [facility] [address] [place], [place], [address] THYROID STIM HORMONE Collected: 03/24/2017 Status: F Source: [place] ([facility]) 3:35 PM [facility] REPOSITORY Order Comment: Order Date: 03/24/17 Order Info: [id number] - CMP Order Info: [id number] - LIPID Order Info: 2324-2 - GGTP Order Info: 3016-3 - TSH TYPE CODE TESTS RESULT OUT OF RANGE REFERENCE UNITS LAB L501.9520 0.358-3.74 uIU/mL Normal TSH 3.34 Performed By: #### L502.0250, L100.0100, L501.9985, L500.4050, L500.4100, L501.5100, L501.9520 #### [facility] [address] [facility] [place], [address] LOWER EXT ARTERIAL Observed: 03/19/2017 Status: F Source: [facility] 11:36 AM [facility] [facility] REPOSITORY [facility] Cardiovascular Services [address] [place] [address] 03/19/17 1135 MR#: [id number] Acct: [id number] Name: NARCISO WALL Rep #: [id number] : 1950 66 From: Chaka Shelley MD Attending Dr: Chaka Shelley MD Status: REG CLI Ordering Dr: Date: 03/19/17 Location: [facility] Sex: M C Admitted: Arterial Study - Arterial Study Arterial Study: Date of scan 03/17/[address] Shelley Indication history of aortic stent with hypertension hyperlipidemia previous smoker Interpretation Right lower extremity normal pulsatile flow at the ankle up to the digits duplex with triphasic flow at both vessels at the ankle with an IVONNE 1.1 for the posterior tibial 1.20 the dorsalis pedis brachial index 0.74 next Left lower extremity normal pulsatile flow noted at the ankle duplex showing triphasic flow both vessels at the at the ankle with an IVONNE 1.03 the posterior tibial 0.9 for the dorsalis pedis. Digital brachial index 0.91 In pression: 1. Bilateral lower extremities with no evidence of significant arterial occlusive disease at rest with an IVONNE 1.14 on the right 1.03 on the left with bilateral triphasic flow 03/19/17 1136 <Electronically signed by Chaka Shelley MD> Date Chaka Shelley MD CC: Chaka Shelley MD; Vitaliy Loredo MD Date Dictated: 03/19/171134 Date Transcribed: 03/19/171134 Data Scientist: LUIS Signed CT ANGIO ABD AND Observed: 03/14/2017 Status: F Source: [place] W/O AND W/DYE 12:54 PM [facility] REPOSITORY [facility] Imaging Services [address] [place] [address] CT ANGIO ABD AND PEL W/O AND W/DYE MR#: [id number] Acct: [id number] Name: NARCISO WALL Rep #: [id number] : 1950 M 66 From: Bebeto Gomez DO PCP: Vitaliy Loredo MD Status: REG CLI Study: CT ANGIO ABD AND PEL W/O AND W/DYE Date of Exam: 03/14/17 Exam# [id number] Ordering Dr: Chaka Shelley MD STUDY: CTA OF THE ABDOMINAL AORTA REASON FOR EXAM: Male, 66 years old. Follow-up aortic aneurysm stent placement. RADIATION DOSAGE (If Supplied By Facility): CTDIvol = ( 25.45 ) mGy, DLP = ( 1279.17 ) mGycm TECHNIQUE: Axial CT angiography multi-detector data acquisition was obtained from the diaphragm to the ischial tuberosities following intravenous administration of 100ML ml of Isovue 370 contrast. Axial images and MIP images were reconstructed from the axial data set. Post-processing of the angiographic images was performed, with multiplanar reformation and 3D reconstruction. Individualized dose optimization techniques were used for this CT. TECHNICAL QUALITY: Good COMPARISON: CTA of the abdomen, July 12, 2016. Descriptors of Narrowing: None (0%) Mild (< 50%) Moderate (50-70%) Severe (70-90%) Subtotal/Total Occlusion (90-100%) Non-Evaluable (technically non-diagnostic FINDINGS: Abdominal aorta: Minimal atherosclerotic changes of the upper abdominal aorta. There is an aortic stent beginning at the level of the diaphragm which extends down to just below the level of the off take off of the renal arteries. This is patent. There is a aortobiiliac stent arising 2.4 cm below the lower edge of the superior stent. Contrast is seen within the stent. There is no extravasation of contrast outside the confines of the stent. The fusiform infrarenal aneurysm measuring 4.8 x 5 cm is occluded around the stent. Celiac and superior mesenteric arteries: No demonstrated narrowing. Inferior mesenteric artery: The origin of the KEYANA is not visualized. Right renal artery(arteries): No demonstrated narrowing. Left renal artery(arteries): No demonstrated narrowing. Right common iliac artery: No demonstrated narrowing. Right external iliac artery: Atherosclerotic changes with mild stenosis. Right internal iliac artery: Atherosclerotic changes with mild stenosis. Left common iliac artery: No demonstrated narrowing. Left external iliac artery: Atherosclerotic changes with mild stenosis. Left internal iliac artery: Atherosclerotic changes with mild stenosis. Lung bases are clear. The heart appears normal in size. The liver is mildly enlarged and demonstrates mild fatty infiltration. There is no mass. Normal gallbladder and biliary ductal system. There is mild splenomegaly. Normal pancreas. Normal adrenal glands. Normal kidneys. Normal IVC and retroperitoneum. Normal stomach. Normal small bowel. Normal colon. Normal appendix. The deep pelvic structures are incompletely visualized due to scatter artifact from a left artificial hip. The urinary bladder appears grossly unremarkable. There are calcifications centrally within a minimally enlarged prostate. There is no pelvic lymphadenopathy. No free air or free fluid is seen within the peritoneal cavity. There is an umbilical hernia of omental fat. There are bilateral inguinal hernias of omental fat. There are degenerative changes of the lumbar spine. CT/CT ANGIO ABD AND PEL W/O AND W/DYE IMPRESSION: 1. Interval placement of a aortobiiliac stent. The stent is patent. The fusiform infrarenal abdominal aortic aneurysm is occluded. There is no evidence of leakage of contrast outside the confines of the stent. 2. Patent upper abdominal aortic stent, not seen on prior study. 3. No other major change in findings from the previous exam. Electronically Signed: Bebeto Gomez DO at 16:58 EST Tel [phone], Service support , CC: Chaka Shelley MD; Vitaliy Loredo MD Data Scientist: Signed PROGRESS Observed: 03/12/2017 Status: COMPLETED Source: [place] 2:47 PM [facility] REPOSITORY HNO ID: [id number] Author: Nava (Pt) Dulce Service: (none) Author Type: Physical Therapist Type: Progress Notes Filed: 03/13/2017 8:06 AM Note Text: Episode Visit Count: 7 Therapist That Will Oversee The Plan Of Care: Nava Cardona PT Start of Care Date: 01/27/17 Onset Date: 08/27/16 REHABILITATION AND SPORTS THERAPY PHYSICAL THERAPY DISCONTINUANCE OF CARE PLAN OF CARE UPDATE: Assessment: Narciso Wall is discontinued from Physical Therapy services due to goal achievement and maximal benefit.. Patient was seen for 7 visits from Start of Care Date: 01/27/17 to 03/13/2017 and treatment included: Therapeutic exercise, Manual therapy, Patient/Family/Caregiver Education and Modalities: Ultrasound. Patient is pleased with his HEP and ready to graduate from skilled PT and continue with the exercises on his own at home and at the community center. Goals updated on 03/12/2017. Notus in home exercise program.--MET Patient will increase flexibility of L ITBand to equal unaffected extremity/side to improve ability to maintain proper posture, restore normal mechanics and decrease pain.--MET Perform walking on treadmill without pain on the Lateral L hip.--MET for 10 minutes Patient will be able to stand 30 minutes at bench in workshop without pain. --MET Improve postural awareness when working in his workshop.--MET Demonstrate improvement on functional score: Patient will improve his/her AM-PAC T-scale score by 4 points to indicate a Minimal Clinical Important Difference. (Goal: 61.75)--Not MET G CODE REPORTING Based on clinical assessment and the score on the AM-PAC Scale Score Assessment Tool, the G code and corresponding severity modifiers are documented below. Evaluation: 01/27/2017 Current Status: Mobility: Walking and Moving Around: G8978 20-39% impaired Goal Status: Mobility: Walking and Moving Around: G8979 20-39% Impaired Progress Report: 02/26/2017 Current Status: Mobility: Walking and Moving Around: G8978 20-39% impaired Goal Status: Mobility: Walking and Moving Around: G8979 CI 1-19% impaired Discharge: 03/12/2017 Goal Status: Mobility: Walking and Moving Around: G8979 CI 1-19% impaired Discharge: Mobility: Walking and Moving Around: G8980 CJ 20-39% impaired SUBJECTIVE: Patient states he feels 25% better with low back symptoms/L hip symptoms since starting PT. Going to the community center 3x a week to perform aerobic exercise. Patient feels he has a good exercise program from therapy, and that he can continue to do this program on his own. Patient stops when he has the pain in his L hip/L back when using the treadmill and changes to using bike and rowing machine and this has been a helpful strategy for him. Patient reports he is able to use the treadmill for 10 minutes before experiecing L hip pain. When feeling pain in back engages abdominal muscles and finds this to be very helpful. Pain Score: 0/10 Pain Location: Low Back/Lumbar Spine - Left;Hip - Left Post Treatment Pain Score: No Change OBJECTIVE MEASURES WITH LEVEL OF FUNCTION: LE Flexibility Flexibility: IT Band Flexibility R IT Band Flexibility: WFL L IT Band Flexibility: WFL TREATMENT: Therapeutic Exercise: 1: Talked about the importance of continuing exercises at home he has learned at PT. The only exercise patient should not continue to perform is the piriformis stretch as patient d/t prior L hip replacement and being told by his surgeon he should not place his leg in this position. Issued green theraband for him to upgrade to when performing standing hip abduction and extension. 2: *Side Lunge to stretch the hip abductors 10 sec holds, 3x, B 3: Rotocrunch abdominals 15# 2x10. 6: *Hamstring stretch on step 30 sec, 2x, B (Patient felt more of a stretch standing vs sitting.) 7: Step One stepper seat 14, arms 4, level 4 x 6 minutes 12: *Standing B hip extension with green Rep band 2x10 with emphasis on upright posture. 13: *Standing B hip abduction green Rep band 2x10. Skilled Intervention: Patient was educated in proper exercise technique and purpose for exercises. Reviewed and educated patient on additions/changes for home exercise program as above (*) Skilled judgment was provided in selection of appropriate interventions. Provided written instruction for home exercise program to facilitate proper performance and compliance. Correct performance of therapeutic exercises was facilitated with verbal, visual and tactile cuing. 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 AMOXICILLIN 500 MG TABLET Take 500 mg by mouth twice da* OXYCODONE-ACETAMINOPHEN 5 MG-* Take 1 tablet by mouth every * METFORMIN 1,000 MG TABLET Take 1,000 mg by mouth daily * MELATONIN 5 MG TABLET 5 mg at bedtime as needed. KETOCONAZOLE 2 % TOPICAL CREAM NYAMYC 100,000 UNIT/GRAM TOPI* MULTIVITAMIN CAPSULE Take 1 capsule by mouth once * * ALBUTEROL 90 MCG/ACTUATION AE* Inhale one(1) - two(2) puffs * Progress Notes: Nava Cardona PT 03/13/2017 8:06 AM Signed Episode Visit Count: 7 Therapist That Will Oversee The Plan Of Care: Nava Cardona PT Start of Care Date: 01/27/17 Onset Date: 08/27/16 REHABILITATION AND SPORTS THERAPY PHYSICAL THERAPY DISCONTINUANCE OF CARE PLAN OF CARE UPDATE: Assessment: Narciso Wall is discontinued from Physical Therapy services due to goal achievement and maximal benefit.. Patient was seen for 7 visits from Start of Care Date: 01/27/17 to 03/13/2017 and treatment included: Therapeutic exercise, Manual therapy, Patient/Family/Caregiver Education and Modalities: Ultrasound. Patient is pleased with his HEP and ready to graduate from skilled PT and continue with the exercises on his own at home and at the [facility]. Goals updated on 03/12/2017. Notus in home exercise program.--MET Patient will increase flexibility of L ITBand to equal unaffected extremity/side to improve ability to maintain proper posture, restore normal mechanics and decrease pain.--MET Perform walking on treadmill without pain on the Lateral L hip.--MET for 10 minutes Patient will be able to stand 30 minutes at bench in workshop without pain. --MET Improve postural awareness when working in his workshop.--MET Demonstrate improvement on functional score: Patient will improve his/her AM-PAC T-scale score by 4 points to indicate a Minimal Clinical Important Difference. (Goal: 61.75)--Not MET G CODE REPORTING Based on clinical assessment and the score on the AM-PAC Scale Score Assessment Tool, the G code and corresponding severity modifiers are documented below. Evaluation: 01/27/2017 Current Status: Mobility: Walking and Moving Around: G8978 20-39% impaired Goal Status: Mobility: Walking and Moving Around: G8979 20-39% Impaired Progress Report: 02/26/2017 Current Status: Mobility: Walking and Moving Around: G8978 20-39% impaired Goal Status: Mobility: Walking and Moving Around: G8979 CI 1-19% impaired Discharge: 03/12/2017 Goal Status: Mobility: Walking and Moving Around: G8979 CI 1-19% impaired Discharge: Mobility: Walking and Moving Around: G8980 20-39% impaired SUBJECTIVE: Patient states he feels 25% better with low back symptoms/L hip symptoms since starting PT. Going to the community center 3x a week to perform aerobic exercise. Patient feels he has a good exercise program from therapy, and that he can continue to do this program on his own. Patient stops when he has the pain in his L hip/L back when using the treadmill and changes to using bike and rowing machine and this has been a helpful strategy for him. Patient reports he is able to use the treadmill for 10 minutes before experiecing L hip pain. When feeling pain in back engages abdominal muscles and finds this to be very helpful. Pain Score: 0/10 Pain Location: Low Back/Lumbar Spine - Left;Hip - Left Post Treatment Pain Score: No Change OBJECTIVE MEASURES WITH LEVEL OF FUNCTION: LE Flexibility Flexibility: IT Band Flexibility R IT Band Flexibility: WFL L IT Band Flexibility: WFL TREATMENT: Therapeutic Exercise: 1: Talked about the importance of continuing exercises at home he has learned at PT. The only exercise patient should not continue to perform is the piriformis stretch as patient d/t prior L hip replacement and being told by his surgeon he should not place his leg in this position. Issued green theraband for him to upgrade to when performing standing hip abduction and extension. 2: *Side Lunge to stretch the hip abductors 10 sec holds, 3x, B 3: Rotocrunch abdominals 15# 2x10. 6: *Hamstring stretch on step 30 sec, 2x, B (Patient felt more of a stretch standing vs sitting.) 7: Step One stepper seat 14, arms 4, level 4 x 6 minutes 12: *Standing B hip extension with green Rep band 2x10 with emphasis on upright posture. 13: *Standing B hip abduction green Rep band 2x10. Skilled Intervention: Patient was educated in proper exercise technique and purpose for exercises. Reviewed and educated patient on additions/changes for home exercise program as above (*) Skilled judgment was provided in selection of appropriate interventions. Provided written instruction for home exercise program to facilitate proper performance and compliance. Correct performance of therapeutic exercises was facilitated with verbal, visual and tactile cuing. Billing: [facility]: Therapeutic Exercise ([id number]): 1:1 time: 40 minutes (3 units: 38-52 mins) Total time: 40 minutes Nava Cardona PT BUN Collected: 03/10/2017 Status: F Source: [place] 3:09 PM [facility] REPOSITORY TYPE CODE TESTS RESULT OUT OF RANGE REFERENCE UNITS LAB L501.1000 7-18 mg/dL Normal BUN 14 Performed By: #### L501.1000, L501.1105 #### [facility] [address] [place], [address] SERUM CREATININE AND Collected: 03/10/2017 Status: F Source: [place] GFR 3:09 PM [facility] REPOSITORY TYPE CODE TESTS RESULT OUT OF RANGE REFERENCE UNITS LAB L501.1100 0.70-1.30 mg/dL Normal 0.89 CREAT,SERUM Result Comment: The validity of the calculated GFR AND GFRAA in patients over 70 years has not been determined. Clinical correlation is essential. LAB L501.1110 >60 mL/min Normal EST GFR 90 Result Comment: Non- GFR Calc LAB L501.1115 >60 mL/min Normal EST GFR - AA 109 Result Comment: GFR Calc Performed By: #### L501.1000, L501.1105 #### [facility] [address] [place], [place], [address] PROGRESS Observed: 03/10/2017 Status: COMPLETED Source: [place] 2:05 PM [facility] REPOSITORY HNO ID: [id number] Author: Nava (Pt) Dulce Service: (none) Author Type: Physical Therapist Type: Progress Notes Filed: 03/11/2017 10:37 AM Note Text: Episode Visit Count: 6 Therapist That Will Oversee The Plan Of Care: Nava Cardona PT Start of Care Date: 01/27/17 Onset Date: 08/27/16 REHABILITATION AND SPORTS THERAPY PHYSICAL THERAPY TREATMENT NOTE ASSESSMENT: Narciso Claire Franksruth demonstrated improvements in with advancement of strengthening exercise here and at [facility]. He feels all exercises have been helpful. Advanced standing hip abduction and extension with addition of orange theraband and a band was vended for home use. Patient is doing Aerobic exercise at the [facility] with bike, rower, and stepper with no increase in back pain. He has not currently challenged himself with longer distance walking. The patient will continue to benefit from continued skilled physical therapy for core strengthening and review of home exercise program. PLAN FOR NEXT VISIT: POC update next visit: 03/12/17 SUBJECTIVE: Patient reports feeling a little bit better. He reports increasing his time on bike, stepper, and rowing machine at the [facility] with no increase in pain. He reports he has not tried walking too far currently. Patient feels exercise are helping him. Pain Score: 0/10 Pain Location: Low Back/Lumbar Spine - Left;Hip - Left Frequency: Intermittent Post Treatment Pain Score: No Change OBJECTIVE MEASURES WITH LEVEL OF FUNCTION: Posture / Alignment Posture: Comments Posture comment: Upright seated posture observed throughout treatment. TREATMENT: Therapeutic Exercise: 1: Supine Double knees to chest 5 x 10 seconds. 2: Supine passive hamstring stretch B 3x30 seconds. 3: Rotocrunch abdominals 10# 2x10. 4: Seated upright on physioball with perturbations purple Rep band forward, lateral right and lateral left 3x15. 5: Hooklying rotations 10 sec holds, 5x 7: Step One stepper seat 14, level 4 x 5 minutes 8: Crunches 2x12 9: Seated flexion 10 second hold x 3. 10: Sidelying clamshells with 2# weights+ TA 2x10, B 12: *Standing B hip extension with orange Rep band 2x10 with emphasis on upright posture. 13: *Standing B hip abduction orange Rep band 2x10. 14: Wall slides with emphasis on proper form 2x10. Skilled Intervention: Patient was educated in proper exercise technique and purpose for exercises. Reviewed and educated patient on additions/changes for home exercise program as above (*)Vended orange band for hip abduction and extension and patient already has the exercise handout. Skilled judgment was provided in selection of appropriate interventions. Correct performance of therapeutic exercises was facilitated with verbal and visual cuing. Billing: [facility]: Therapeutic Exercise ([id number]): 1:1 time: 41 minutes (3 units: 38-52 mins) Total time: 41 minutes Alison Gomez PTStephanie Cardona PT CNTHERAPY Observed: 03/10/2017 Status: COMPLETED Source: [place] 2:00 PM [facility] REPOSITORY OT/PT/Speech Visit (PTWS) BRAYANNARCISO Claire ([id number]) 1950 M Date Time Provider Department 03/10/17 2:00 PM ALISON GOMEZ (EXAMINER RATING CLERK) PTWS Date Time Provider Department Center 03/10/2017 2:00 PM [id number], NANCY (EXAMINER RATING CLERK) PTWS [facility] Reason for Visit: Physical Therapy [503] Primary Visit Diagnosis: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 AMOXICILLIN 500 MG TABLET Take 500 mg by mouth twice da* OXYCODONE-ACETAMINOPHEN 5 MG-* Take 1 tablet by mouth every * METFORMIN 1,000 MG TABLET Take 1,000 mg by mouth daily * MELATONIN 5 MG TABLET 5 mg at bedtime as needed. KETOCONAZOLE 2 % TOPICAL CREAM NYAMYC 100,000 UNIT/GRAM TOPI* MULTIVITAMIN CAPSULE Take 1 capsule by mouth once * * ALBUTEROL 90 MCG/ACTUATION AE* Inhale one(1) - two(2) puffs * Progress Notes: Nava Cardona PT 03/11/2017 10:37 AM Signed Episode Visit Count: 6 Therapist That Will Oversee The Plan Of Care: Nava Cardona PT Start of Care Date: 01/27/17 Onset Date: 08/27/16 REHABILITATION AND SPORTS THERAPY PHYSICAL THERAPY TREATMENT NOTE ASSESSMENT: Narciso Wall demonstrated improvements in with advancement of strengthening exercise here and at [facility]. He feels all exercises have been helpful. Advanced standing hip abduction and extension with addition of orange theraband and a band was vended for home use. Patient is doing Aerobic exercise at the [facility] with bike, rower, and stepper with no increase in back pain. He has not currently challenged himself with longer distance walking. The patient will continue to benefit from continued skilled physical therapy for core strengthening and review of home exercise program. PLAN FOR NEXT VISIT: POC update next visit: 03/12/17 SUBJECTIVE: Patient reports feeling a little bit better. He reports increasing his time on bike, stepper, and rowing machine at the [facility] with no increase in pain. He reports he has not tried walking too far currently. Patient feels exercise are helping him. Pain Score: 0/10 Pain Location: Low Back/Lumbar Spine - Left;Hip - Left Frequency: Intermittent Post Treatment Pain Score: No Change OBJECTIVE MEASURES WITH LEVEL OF FUNCTION: Posture / Alignment Posture: Comments Posture comment: Upright seated posture observed throughout treatment. TREATMENT: Therapeutic Exercise: 1: Supine Double knees to chest 5 x 10 seconds. 2: Supine passive hamstring stretch B 3x30 seconds. 3: Rotocrunch abdominals 10# 2x10. 4: Seated upright on physioball with perturbations purple Rep band forward, lateral right and lateral left 3x15. 5: Hooklying rotations 10 sec holds, 5x 7: Step One stepper seat 14, level 4 x 5 minutes 8: Crunches 2x12 9: Seated flexion 10 second hold x 3. 10: Sidelying clamshells with 2# weights+ TA 2x10, B 12: *Standing B hip extension with orange Rep band 2x10 with emphasis on upright posture. 13: *Standing B hip abduction orange Rep band 2x10. 14: Wall slides with emphasis on proper form 2x10. Skilled Intervention: Patient was educated in proper exercise technique and purpose for exercises. Reviewed and educated patient on additions/changes for home exercise program as above (*)Vended orange band for hip abduction and extension and patient already has the exercise handout. Skilled judgment was provided in selection of appropriate interventions. Correct performance of therapeutic exercises was facilitated with verbal and visual cuing. Billing: [facility]: Therapeutic Exercise ([id number]): 1:1 time: 41 minutes (3 units: 38-52 mins) Total time: 41 minutes Alison Gomez, PT-Noreen Cardona PT Previous Version Follow-up and Disposition History Recorded ALLERGIES ALLERGIES DATE TYPE / CODE NAME / REACTION SEVERITY SOURCE CODE 06/20/2017 Miscellaneous CAT HAIR Itching Unknown [facility] Allergy/[id number](SN [facility]) Hospital Repository 06/10/2012 Animal/[id number](SNO CATS SWELLING [facility] Repository ENCOUNTERS ENCOUNTERS ADMIT/DISCHARGE ACCOUNT ADMITTING ENCOUNTER LOCATION SOURCE NUMBER CLASS 03/02/2018 [id number] Ambulatory [facility] Hospital ing:MFPLAB Repository 09/22/2017 [id number] Ambulatory [facility] Hospital ing:MFPLAB Repository 07/02/2017/07/03/19 [id number] Ambulatory BMSBuilding:B Currie 18 MS.[facility] Repository 06/25/2017/06/26/19 [id number] Ambulatory [address] Hospital ing:EN Repository 06/25/2017 [id number] Ambulatory BMSBuilding:B Sharita MS.CF.[facility] Repository 06/13/2017/06/14/19 [id number] Ambulatory BMSBuilding:B Sharita 18 MS.[facility] Repository 06/02/2017/06/03/19 [id number] Ambulatory BMSBuilding:B Sharita 18 MS.[facility] Repository 03/28/2017 [id number] Ambulatory [facility] Hospital ing:US Repository 03/24/2017 [id number] Ambulatory [facility] Hospital ing:MFPLAB Repository 03/17/2017 [id number] Ambulatory [facility] Hospital ing:CVS Repository 03/14/2017 [id number] Ambulatory [facility] Hospital ing:CT Repository 03/12/2017/03/13/19 [id number] Ambulatory [address] Repository 03/10/2017/03/11/19 [id number] Ambulatory [address] Repository PAYERS PAYERS ENCOUNTER GUARANTOR PAYER SUBSCRIBER SOURCE 03/02/2018 Narciso Rangel 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 [id number] N Insurance:MEDICARE TebbeDOB: [facility], PART A [facility] [id number] [place] [address]Ueu: Number: Repository [id number] (HP) Date:2018-03-02 03/02/2018 Secondary 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 Insurance:CIGNAPolicy TebbeDOB: Community Number: [id number] [facility] [id number] Repository Date:2257-29-[address]NDCWHIDFNCS, [place] [address]CM: 03/02/2018 Tertiary NOT GIVENUNK Sharita Insurance:SELF PAY [facility] Number: Effective Repository Date:2018-03-02 09/22/2017 Narciso Rangel 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 [id number] N Insurance:MEDICARE TebbeDOB: [facility], PART A [address]04-28[facility] [address]Ddf: Number: Repository [id number] (HP) Date:2017-09-22 09/22/2017 Secondary 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 Insurance:CIGNAPolicy TebbeDOB: Community Number: [id number] Hospital [id number] Repository Date:5433-58-90[address]FZXKLHUKK, [place] [address]ME: 09/22/2017 Tertiary NOT GIVENUNK Currie Insurance:SELF PAY [facility] Number: Effective Repository Date:2017-09-22 07/02/2017 Narciso Rangel 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 [id number] N Insurance:MEDICARE TebbeDOB: [facility], PART A [address]04[address]28[facility] [address]Obj: Number: Repository [id number] (HP) Date:2017-06-26 07/02/2017 Secondary 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 Insurance:CIGNAPolicy TebbeDOB: Community Number: [id number] Hospital [id number] Repository Date:4156-31-17[address]WRVYXFWLJOC, [place] [address]WS: 07/02/2017 Tertiary NOT GIVENUNK Currie Insurance:SELF PAY [facility] Number: Effective Repository Date:2017-07-02 06/25/2017 Narciso Rangel 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 [id number] N Insurance:MEDICARE TebbeDOB: Community [facility], PART A [facility] [id number] Care [facility] of [facility] [place] [address]Ukm: Number: Repository [id number] (HP) Date:2017-06-13 06/25/2017 Secondary 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 Insurance:CIGNAPolicy TebbeDOB: Community Number: [id number] Hospital [id number] Repository Date:8244-59-48[address]EAZOHRYBCQB, [place] [address]KX: 06/25/2017 Tertiary NOT GIVENUNK Currie Insurance:SELF PAY [facility] Number: Effective Repository Date:2017-06-13 06/25/2017 Narciso Rangel 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 [id number] N Insurance:MEDICARE TebbeDOB: [facility], PART A [facility] [id number] Care [facility] [place] [address]Dom: Number: Repository [id number] (HP) Date:2017-06-13 06/25/2017 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 Insurance:CIGNAPolicy TebbeDOB: Community Number: [id number] Hospital [id number] Repository Date:1227-34-78[address]JETHRDYGVSM [place] [address]FX: 06/25/2017 Tertiary NOT GIVENUNK Currie Insurance:SELF PAY [facility] Number: Effective Repository Date:2017-06-25 06/13/2017 Narciso Rangel 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 [id number] N Insurance:MEDICARE TebbeDOB: Community [facility], PART A [facility] [id number] Care [facility] of [facility] [place] [address]Svq: Number: Repository [id number] (HP) Date:2017-06-13 06/13/2017 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 Insurance:CIGNAPolicy TebbeDOB: Community Number: [id number] Hospital [id number] Repository Date:8338-66-09[address]OTVBRQOQRNP, [place] [address]WN: 06/13/2017 Tertiary NOT GIVENUNK Sharita Insurance:SELF PAY [facility] Number: Effective Repository Date:2017-06-13 06/02/2017 Narciso Rangel 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 [id number] N Insurance:MEDICARE TebbeDOB: Community [facility], PART A [facility] [id number] Care [facility] of [facility] [place] [address]Rdi: Number: Repository [id number] () Date:2017-06-02 06/02/2017 Secondary 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 Insurance:CIGNAPolicy TebbeDOB: Community Number: [id number] Hospital [id number] Repository Date:7709-24-18LT [address]YSTYJGFGIVL, [place] [address]BY: 06/02/2017 Tertiary NOT GIVENUNK Sharita Insurance:SELF PAY [facility] Number: Effective Repository Date:2017-06-02 03/28/2017 Narciso Rangel 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 [id number] N Insurance:MEDICARE TebbeDOB: Community [facility], PART A [facility] [id number] Care [facility] of [facility] [place] [address]Foi: Number: Repository [id number] () Date:2017-03-24 03/28/2017 Secondary 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 Insurance:CIGNAPolicy TebbeDOB: Community Number: [id number] [facility] [id number] Repository Date:9612-48-66[address]RPRDFROFAHK, [place] [address]KY: 03/28/2017 Tertiary NOT GIVENUNK Sharita Insurance:SELF PAY [facility] Number: Effective Repository Date:2017-03-24 03/24/2017 Narciso Rangel 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 [id number] N Insurance:MEDICARE TebbeDOB: Community [facility], PART A [facility] [id number] Care Hospital of [facility] [place] [address]Ilw: Number: Repository [id number] () Date:2017-03-24 03/24/2017 Secondary 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 Insurance:CIGNAPolicy TebbeDOB: Community Number: [id number] Hospital [id number] Repository Date:2966-14-44[address] [address]PE: 03/24/2017 Tertiary NOT GIVENUNK Currie Insurance:SELF PAY [facility] Number: Effective Repository Date:2017-03-24 03/17/2017 Narciso Rangel 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 [id number] N Insurance:MEDICARE TebbeDOB: Community [facility], PART A [facility] [id number] Care Hospital of [facility] [place] [address]Yje: Number: Repository [id number] (HP) Date:2017-03-06 03/17/2017 Secondary Narciso Pyleoster Insurance:CIGNAPolicy TebbeDOB: Community Number: [id number] Hospital [id number] Repository Date:0093-92-34[address] [address]FR: 03/17/2017 Tertiary NOT GIVENUNK Sharita Insurance:SELF PAY [facility] Number: Effective Repository Date:2017-03-06 03/14/2017 Narciso Rangel 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 [id number] N Insurance:MEDICARE TebbeDOB: Community [facility], PART A [facility] [id number] Care Hospital of [facility] [place] [address]Rfn: Number: Repository [id number] () Date:2017-03-06 03/14/2017 Secondary Narciso Rangel Sharita Insurance:CIGNAPolicy TebbeDOB: Community Number: [id number] Hospital [id number] Repository Date:5610-90-38[address] [address]IZ: 03/14/2017 Tertiary NOT GIVENUNK Sharita Insurance:SELF PAY [facility]: Effective Repository Date:2017-03-06
== END ==
PROVIDERS: Family Provider Family Medicine; PCP Family Medicine; Visit Provider Family Medicine
DX: I10 Essential (primary) hypertension (principal)
CPT/HCPCS: 36415; 80048

== ENCOUNTER → 2018-07-22 | Outpatient (CLI) | payer MEDICARE, OTHER, SELFPAY ==
--- NOTE | 2018-07-22 08:39 | AAVD_ITS ---
Reason For Study: AAA Aorta Measurements Aorta Doppler Measurements Proximal aorta measures1.94 x 2.00cm. in cross- Peak systolic flow velocities within the proximal sectional axis. aorta measure 69.5 cm/sec. Proximal aorta measures1.98cm. in longitudinal axis. Mid residual sac measures 4.82 x 4.67 cm with velocities of 170 cm/sec and 166.9 cm/sec. Distal residual sac measures 3.78 x 0.79 cm with velocities of 118.3 cm/sec and 57.5 cm/sec. Left Iliac Artery Left iliac artery measures 0.99 x 1.13 cm. in the cross-sectional axis. Left iliac artery measures 1.14 cm. in the longitudinal axis. Peak systolic velocity in the left iliac artery measures 66.7 cm/sec. Right Iliac Artery Right iliac artery measures 1.62 x 1.64 cm. in the cross-sectional axis. Right iliac artery measures 1.54 cm. in the longitudinal axis. Peak systolic velocity in the right iliac artery measures 80.2 cm/sec. Procedure Aorta IVC Iliac vasculature or bypass grafts 26887. Technicallly difficult due to pt body habitus and bowel gas. Exam performed in department. Interpretation Summary 1. Aortic aneurysm 4.82cm. Ordering Physician: Chaka Shelley Referring Physician: Vitaliy Loredo MD Performed By: Lucía Wilkins RVT
--- NOTE | 2018-07-22 08:39 | ART_ITS ---
Reason For Study: Claudication Procedure A bilateral lower extremity continuous wave Doppler with analog waveform analysis,segmental pressures,and ankle brachial indexes without exercise. Left Segmental Pressures Left brachial= 160mmHg. Left posterior tibial artery = 169mmHg. Left dorsalis pedis artery = 157mmHg. Left digit = 129 mmHg. The left dorsalis pedis waveforms are triphasic. The left posterior tibial artery waveforms are triphasic. Right Segmental Pressures Right brachial= 140mmHg. Right posterior tibial artery = 166mmHg. Right dorsalis pedis artery = 176mmHg. Right digit = 133 mmHg. The right dorsalis pedis waveforms are triphasic. The right posterior tibial artery waveforms are triphasic. Indices The right ankle brachial index by the dorsalis pedis is 1.10. The right ankle brachial index by the posterior tibial artery is 1.04. The right digital-brachial index is 0.83. The left ankle brachial index by the dorsalis pedis is 0.98. The left ankle brachial index by the posterior tibial artery is 1.06. The left digital-brachial index is 0.81. Interpretation Summary 1. no evidence of occlussive disease with IVONNE 1.1/1.06 and triphasic flow. DBI 0.83/0.81. Ordering Physician: Chaka Shelley Referring Physician: Vitaliy Loredo MD Performed By: Lucía Wilkins RVT
== END | disposition home or self-care (01) ==
LOC: CVS 08:37
PROVIDERS: Family Provider Family Medicine; PCP Family Medicine; Referring Provider Surgery Vascular Surgery; Visit Provider Surgery Vascular Surgery
DX: I71.4 Abdominal aortic aneurysm, without rupture (principal); I10 Essential (primary) hypertension; Z85.05 Personal history of malignant neoplasm of liver; E78.00 Pure hypercholesterolemia, unspecified; I70.213 Atherosclerosis of native arteries of extremities with intermittent claudication, bilateral legs
CPT/HCPCS: 93923; 93978

== ENCOUNTER → 2018-12-14 13:42 | Outpatient (CLI) | payer MEDICARE, OTHER, SELFPAY ==
[2018-12-14 15:34] LABS: Hematocrit 41.3 % (40-54); Hemoglobin 13.6 g/dL (13.0-16.5); Mean Corp Hgb Conc 32.9 g/dL (32-36); Mean Corpuscular Hgb 31.9 pg (27.0-32.0); Mean Corpuscular Volume 96.9 fL (80-94); Mean Platelet Vol. 10.6 fl (6.2-12.0); Platelet Count 123 K/mm3 (150-450); RBC Distribution Width CV 13.3 % (11.6-14.6); RBC Distribution Width SD 47.7 fl (35.1-43.9); Red Blood Count 4.26 M/mm3 (4.6-6.2)
[2018-12-14 15:49] LABS: ALB/GLOB Ratio 0.7 RATIO (0.9-2.4); AST(SGOT) 47 U/L (15-37); Alanine Aminotransfer ALT/SGPT 60 U/L (16-61); Albumin, Serum 3.3 g/dL (3.2-5.0); Alkaline Phosphatase 92 U/L (45-117); Anion Gap 8 (5-15); BUN 12 mg/dL (7-18); BUN/Creat Ratio 12.9 RATIO (10-20); Calcium,Total 8.8 mg/dL (8.5-10.1); Chloride 105 mmol/L (98-107); Creatinine, Serum 0.93 mg/dL (0.70-1.30); EST Glomerular Filtration Rate 85 mL/min (>60); Est Glom Filt Rate - Afr Amer 103 mL/min (>60); Glucose 131 mg/dL (74-106); Potassium 4.1 mmol/L (3.5-5.1); Protein, Total 8.3 g/dL (6.4-8.2); Sodium Level 138 mmol/L (136-145); Thyroid Stim Hormone (TSH) 2.99 uIU/mL (0.358-3.74)
[2018-12-14 15:51] LABS: Hemoglobin A1c 5.8 % (4.2-6.3)
[2018-12-14 16:03] LABS: Microalbumin,Random Urine 7.2 mg/L (NO RANGE EST.); Microalbumin:Creatinine Ratio 6.1 mg/g CRE (<30 mg/g CRE)
[2018-12-17 15:11] LABS: Cholesterol 198 mg/dL (200); High Density Lipoprotein 41 mg/dL; Triglycerides 240 mg/dL; Very Low Density Lipoprotein 48 mg/dL (5-40)
== END ==
PROVIDERS: Family Provider Family Medicine; PCP Family Medicine; Visit Provider Family Medicine
DX: E88.81 Metabolic syndrome and other insulin resistance (principal); I10 Essential (primary) hypertension; Z79.899 Other long term (current) drug therapy
CPT/HCPCS: 36415; 80053; 80061; 82043; 82570; 83036; 84443; 85027

== ENCOUNTER → 2019-09-01 08:44 | Outpatient (CLI) | payer MEDICARE, OTHER, SELFPAY ==
--- NOTE | 2019-09-01 08:50 | AAVD_ITS ---
Reason For Study: AAA Aorta Measurements Aorta Doppler Measurements Proximal aorta measures2.31 x 2.31cm. in cross- Peak systolic flow velocities within the proximal sectional axis. aorta measure 59.7 cm/sec. Proximal aorta measures2.34cm. in longitudinal axis. Mid Aorta residual sac 3.98 x 3.91 x 4.25 cm. Mid Limb 1, 1.04 x 0.95 x 1.14 cm, 122.1cm/sec. MId Limb 2, 0.93 x 0.97 x 1.06 cm, 155.5 cm/sec. Distal Aorta residual sac 3.49 x 3.50 x 3.21 cm. Distal Limb 1, 1.36 x 1.34 x 1.27 cm, 133 cm/sec. Distal Limb 2, 1.25 x 1.25 x 1.24 cm, 150.5 cm/sec. No endoleak noted. Left Iliac Artery Left iliac artery measures 1.24 x 1.24 cm. in the cross-sectional axis. Left iliac artery measures 1.25 cm. in the longitudinal axis. Peak systolic velocity in the left iliac artery measures 78.1 cm/sec. Right Iliac Artery Right iliac artery measures 1.36 x 1.36 cm. in the cross-sectional axis. Right iliac artery measures 1.39 cm. in the longitudinal axis. Peak systolic velocity in the right iliac artery measures 47.4 cm/sec. Procedure Aorta IVC Iliac vasculature or bypass grafts 06372. Exam performed in department. Interpretation Summary Patent aortic endograft wiht no stenosis and no obvious endoleak. Sac 3.9 x 4.2cm. Ordering Physician: Chaka Shelley Referring Physician: Vitaliy Loredo MD Performed By: Lucía Wilkins RVT
== END ==
PROVIDERS: PCP Family Medicine; Referring Provider Surgery Vascular Surgery; Visit Provider Surgery Vascular Surgery
DX: I71.4 Abdominal aortic aneurysm, without rupture (principal); I70.213 Atherosclerosis of native arteries of extremities with intermittent claudication, bilateral legs
CPT/HCPCS: 93922; 93978

== ENCOUNTER → 2019-10-04 16:48 | Outpatient (CLI) | payer MEDICARE, OTHER, SELFPAY ==
[2019-10-04 17:55] LABS: Absolute Neutrophil Count 3.4 X10^3/uL (2.0-7.7); Basophil# 0.03 X10^3/uL; Basophil% 0.6 % (0-1); Eosinophil# 0.18 X10^3/uL; Eosinophils% 3.6 % (0-5); Hematocrit 39.2 % (40-54); Hemoglobin 12.9 g/dL (13.0-16.5); Lymphocyte % 20.2 % (19-41); Mean Corp Hgb Conc 32.9 g/dL (32-36); Mean Corpuscular Hgb 32.8 pg (27.0-32.0); Mean Corpuscular Volume 99.7 fL (80-94); Mean Platelet Vol. 10.7 fl (6.2-12.0); Monocyte# 0.37 X10^3/uL; Monocyte% 7.5 % (0-10); NRBC Flagged by Analyzer 0 % (0-5); Neutrophil # 3.36 X10^3/uL (2.7-7.7); Neutrophil % 67.9 % (47-70); Platelet Count 107 K/mm3 (150-450); RBC Distribution Width SD 51.4 fl (35.1-43.9); Red Blood Count 3.93 M/mm3 (4.6-6.2)
[2019-10-04 19:37] LABS: Vitamin D,25 Hydroxy 28.9 ng/mL
[2019-10-04 20:21] LABS: ALB/GLOB Ratio 0.6 RATIO (0.9-2.4); AST(SGOT) 54 U/L (15-37); Alanine Aminotransfer ALT/SGPT 57 U/L (16-61); Albumin, Serum 3.3 g/dL (3.2-5.0); Alkaline Phosphatase 104 U/L (45-117); Anion Gap 6 (5-15); BUN 12 mg/dL (7-18); BUN/Creat Ratio 15.3 RATIO (10-20); CRP 8.03 mg/L (0.0-3.0); Calcium,Total 9.1 mg/dL (8.5-10.1); Chloride 109 mmol/L (98-107); Creatinine, Serum 0.78 mg/dL (0.70-1.30); EST Glomerular Filtration Rate 104 mL/min (>60); Est Glom Filt Rate - Afr Amer 126 mL/min (>60); Globulin 5.2 g/dL (2.2-4.2); Glucose 156 mg/dL (74-106); Potassium 3.9 mmol/L (3.5-5.1); Protein, Total 8.5 g/dL (6.4-8.2); Sodium Level 139 mmol/L (136-145); Thyroid Stim Hormone (TSH) 3.32 uIU/mL (0.358-3.74)
== END ==
PROVIDERS: PCP Family Medicine; Referring Provider Family Medicine; Visit Provider Family Medicine
DX: R42 Dizziness and giddiness (principal); K76.9 Liver disease, unspecified
CPT/HCPCS: 36415; 80053; 82306; 84443; 85025; 86140

== ENCOUNTER → 2020-07-25 16:22 | Outpatient (CLI) | payer MEDICARE, OTHER, SELFPAY ==
[2020-07-25 17:52] LABS: Absolute Neutrophil Count 3.5 X10^3/uL (2.0-7.7); Basophil# 0.03 X10^3/uL; Basophil% 0.6 % (0-1); Eosinophil# 0.13 X10^3/uL; Eosinophils% 2.4 % (0-5); Hematocrit 37.4 % (40-54); Hemoglobin 12.4 g/dL (13.0-16.5); Lymphocyte % 24.5 % (19-41); Mean Corp Hgb Conc 33.2 g/dL (32-36); Mean Corpuscular Hgb 31.5 pg (27.0-32.0); Mean Corpuscular Volume 94.9 fL (80-94); Monocyte# 0.33 X10^3/uL; Monocyte% 6.2 % (0-10); NRBC Flagged by Analyzer 0 % (0-5); Neutrophil # 3.51 X10^3/uL (2.7-7.7); Neutrophil % 66.1 % (47-70); Platelet Count 109 K/mm3 (150-450); RBC Distribution Width CV 14.2 % (11.6-14.6); RBC Distribution Width SD 49.1 fl (35.1-43.9); Red Blood Count 3.94 M/mm3 (4.6-6.2); White Blood Count 5.3 K/mm3 (4.4-11.0)
[2020-07-25 18:17] LABS: BUN 17 mg/dL (7-18); Creatinine, Serum 0.87 mg/dL (0.70-1.30); Glucose 225 mg/dL (74-106)
[2020-07-25 18:18] LABS: ALB/GLOB Ratio 0.6 RATIO (0.9-2.4); AST(SGOT) 60 U/L (15-37); Alanine Aminotransfer ALT/SGPT 64 U/L (16-61); Albumin, Serum 3.2 g/dL (3.2-5.0); Alkaline Phosphatase 106 U/L (45-117); Anion Gap 7 (5-15); BUN/Creat Ratio 19.6 RATIO (10-20); Calcium,Total 8.6 mg/dL (8.5-10.1); Chloride 108 mmol/L (98-107); EST Glomerular Filtration Rate 92 mL/min (>60); Est Glom Filt Rate - Afr Amer 112 mL/min (>60); Protein, Total 8.2 g/dL (6.4-8.2); Sodium Level 139 mmol/L (136-145); Vitamin D,25 Hydroxy 32.6 ng/mL
[2020-07-25 18:21] LABS: Hemoglobin A1c 7.8 % (3.8-5.6)
== END ==
PROVIDERS: PCP Family Medicine; Referring Provider Family Medicine; Visit Provider Family Medicine
DX: K76.9 Liver disease, unspecified (principal); E55.9 Vitamin D deficiency, unspecified; E88.81 Metabolic syndrome and other insulin resistance
CPT/HCPCS: 36415; 80053; 82306; 83036; 85025

== ENCOUNTER → 2020-08-04 08:01 | Outpatient (CLI) | payer MEDICARE, OTHER, SELFPAY ==
--- NOTE | 2020-08-04 08:03 | US_ITS ---
HISTORY: HX OF AAA REPAIR. TECHNIQUE: Realtime sonographic evaluation of the aorta was performed. # of images incl. paperwork: 35. COMPARISON: 09/01/2019. FINDINGS: Limited examination due to body habitus and overlying bowel gas PROXIMAL ABDOMINAL AORTA: Not well-visualized due to overlying bowel gas. MID ABDOMINAL AORTA: 2 x 2.8 cm. INFRARENAL AORTA: 3.8 x 4.1 cm fusiform aneurysm 9 cm in length, with patent endograft. DISTAL ABDOMINAL AORTA: 1.7 x 2 cm. RIGHT COMMON ILIAC ARTERY: 1.3 x 1.3 cm. LEFT COMMON ILIAC ARTERY: 1.4 x 1.3 cm. IVC: Visualized. US/Aorta IMPRESSION: Infrarenal abdominal aortic aneurysm repair as described above. at 1027 Reported and signed by: Sarah Plummer MD Electronically Signed: Sarah Plummer MD at 10:26 EDT Tel , Service support ,
== END ==
PROVIDERS: PCP Family Medicine; Referring Provider Family Medicine; Visit Provider Family Medicine
DX: Z98.890 Other specified postprocedural states (principal)
CPT/HCPCS: 76775

== ENCOUNTER → 2020-10-31 16:30 | Outpatient (CLI) | payer MEDICARE, OTHER, SELFPAY ==
[2020-10-31 18:05] LABS: Absolute Lymphocyte Count 1.15 X10^3/uL (0.83-4.51); Absolute Neutrophil Count 3.5 X10^3/uL (2.0-7.7); Basophil# 0.04 X10^3/uL; Basophil% 0.7 % (0-1); Eosinophil# 0.17 X10^3/uL; Eosinophils% 3.2 % (0-5); Hematocrit 38.6 % (40-54); Hemoglobin 12.8 g/dL (13.0-16.5); Lymphocyte # 1.15 X10^3/ul (0.83-4.51); Lymphocyte % 21.5 % (19-41); Mean Corp Hgb Conc 33.2 g/dL (32-36); Mean Corpuscular Hgb 31.3 pg (27.0-32.0); Mean Corpuscular Volume 94.4 fL (80-94); Mean Platelet Vol. 10.3 fl (6.2-12.0); Monocyte# 0.45 X10^3/uL; Monocyte% 8.4 % (0-10); NRBC Flagged by Analyzer 0 % (0-5); Neutrophil # 3.53 X10^3/uL (2.7-7.7); Platelet Count 105 K/mm3 (150-450); RBC Distribution Width CV 14.4 % (11.6-14.6); Red Blood Count 4.09 M/mm3 (4.6-6.2); White Blood Count 5.4 K/mm3 (4.4-11.0)
[2020-10-31 18:57] LABS: ALB/GLOB Ratio 0.7 RATIO (0.9-2.4); AST(SGOT) 48 U/L (15-37); Alanine Aminotransfer ALT/SGPT 48 U/L (16-61); Albumin, Serum 3.2 g/dL (3.2-5.0); Alkaline Phosphatase 98 U/L (45-117); Anion Gap 7 (5-15); BUN 17 mg/dL (7-18); BUN/Creat Ratio 23.1 RATIO (10-20); Calcium,Total 8.4 mg/dL (8.5-10.1); Chloride 108 mmol/L (98-107); Creatinine, Serum 0.74 mg/dL (0.70-1.30); EST Glomerular Filtration Rate 112 mL/min (>60); Est Glom Filt Rate - Afr Amer 135 mL/min (>60); Globulin 4.9 g/dL (2.2-4.2); Glucose 105 mg/dL (74-106); Potassium 3.9 mmol/L (3.5-5.1); Protein, Total 8.1 g/dL (6.4-8.2); Sodium Level 138 mmol/L (136-145); Uric Acid 5.4 mg/dL (3.5-7.2)
[2020-11-01 16:30] LABS: Rheumatoid Factor < 10.0 IU/mL (<15)
== END ==
PROVIDERS: PCP Family Medicine; Referring Provider Family Medicine; Visit Provider Family Medicine
DX: E11.69 Type 2 diabetes mellitus with other specified complication (principal); M19.079 Primary osteoarthritis, unspecified ankle and foot
CPT/HCPCS: 36415; 80053; 84550; 85025; 86140; 86431

== ENCOUNTER → 2021-10-03 | Outpatient (CLI) | payer MEDICARE, OTHER, SELFPAY ==
--- NOTE | 2021-10-03 08:38 | AAVD_ITS ---
Reason For Study: AAA Aorta Measurements Aorta Doppler Measurements Proximal aorta measures2.47cm x 2.35cm. in cross- Peak systolic flow velocities within the proximal sectional axis. aorta measure 119 cm/sec. Proximal aorta measures1.87cm. in longitudinal axis. Mid Aorta residual sac: 4.90cm x 4.96cm x 4.83cm Mid Limb 1, 1.35cm x 1.69cm x 1.29cm, 186cm/s MId Limb 2, 1.40cm x 1.73cm x 1.50cm, 161cm/s Distal Limb 1, 1.30cm x 1.45cm x , 109cm/s Distal Limb 2, 1.33cm x 1.50cm x , 99cm/s. Left Iliac Artery Left iliac artery measures 1.57cm x 1.57 cm. in the cross-sectional axis. Left iliac artery measures 1.46 cm. in the longitudinal axis. Peak systolic velocity in the left iliac artery measures 71 cm/sec. Right Iliac Artery Right iliac artery measures 1.52cm x 1.60 cm. in the cross-sectional axis. Right iliac artery measures 1.64 cm. in the longitudinal axis. Peak systolic velocity in the right iliac artery measures 86 cm/sec. Procedure Aorta IVC Iliac vasculature or bypass grafts 41381. Technically difficult study due to patient body habitus and bowel gas. Exam performed in department. VL/Abd Aortic/IVC Duplex scan Interpretation Summary Patent endograft with no evidence of endoleak. Residual aneurysm sac of 4.9 cm. Ordering Physician: Chaka Shelley Referring Physician: Vitaliy Loredo Performed By: Elise Gustafson RDCS, RVT
--- NOTE | 2021-10-03 08:38 | ART_ITS ---
Reason For Study: AAA Procedure A bilateral lower extremity continuous wave Doppler with analog waveform analysis and ankle brachial indexes. Left Segmental Pressures Left brachial= 170mmHg. Left posterior tibial artery = 170mmHg. Left dorsalis pedis artery = 151mmHg. Left digit = 140 mmHg. Right Segmental Pressures Right brachial= 142mmHg. Right posterior tibial artery = 177mmHg. Right dorsalis pedis artery = 176mmHg. Right digit = 128 mmHg. Indices The right ankle brachial index by the posterior tibial artery is 1.04. The right ankle brachial index by the dorsalis pedis is 1.04. The right digital-brachial index is 0.75. The left ankle brachial index by the posterior tibial artery is 1.00. The left ankle brachial index by the dorsalis pedis is 0.89. The left digital-brachial index is 0.82. VL/Ankle Brachial Index Interpretation Summary No evidence of significant occlusive disease at rest with an IVONNE 1.04 and 1.0 a nd bilateral triphasic flow. Digit brachial index of 0.75 and 0.82. Ordering Physician: Chaka Shelley Referring Physician: Vitaliy Loredo Performed By: Elise Gustafson RDCS/RVT
== END | disposition home or self-care (01) ==
PROVIDERS: PCP Family Medicine; Referring Provider Surgery Vascular Surgery; Visit Provider Surgery Vascular Surgery
DX: I71.4 Abdominal aortic aneurysm, without rupture (principal); I73.9 Peripheral vascular disease, unspecified
CPT/HCPCS: 93922; 93978

== ENCOUNTER → 2021-11-12 | Outpatient (CLI) | payer MEDICARE, OTHER, SELFPAY ==
--- NOTE | 2021-11-12 13:26 | CT_ITS ---
STUDY: CTA ABDOMEN AND PELVIS WITH CONTRAST REASON FOR EXAM: Male, 71 years old. AAA. History of covered stent repair of the abdominal aortic aneurysm. RADIATION DOSAGE (If Supplied By Facility): CTDIvol = ( 28.85 ) mGy, DLP = ( 1142.81 ) mGycm TECHNIQUE: Transaxial images were obtained from the dome of the diaphragm to the symphysis pubis without oral contrast. IV 100mL Isovue-370 was administered. Sagittal and coronal images were reconstructed. Individualized dose optimization techniques were used for this CT. COMPARISON: Comparison is made with prior examination dated 03/14/2017. FINDINGS: The visualized lung bases are unremarkable. Coronary artery calcification. There is decreased attenuation of the liver consistent with steatosis. Normal gallbladder and extrahepatic biliary system. There is mild splenomegaly. Normal pancreas. Normal bilateral adrenal glands. Normal right kidney. Normal left kidney. Normal visualized stomach. Normal small intestine. There are multiple colonic diverticula consistent with diverticulosis. The appendix is visualized and appears normal. There is diffuse atherosclerotic calcification of the abdominal aorta and its major visceral branches. The patient is status post ENDO luminal stent grafting of the abdominal aorta. There is no evidence of a perigraft leak. There is persistent dilatation of the distal abdominal aorta with a transverse dimension of 3.1 cm. There is evidence of mural thrombus. Normal inferior vena cava. Normal retroperitoneum. Normal urinary bladder. There are prostatic calcifications. Bilateral inguinal hernias right greater than left containing fat. There are diffuse degenerative changes of the visualized lumbar spine. There is straightening of the normal lumbar lordosis. The patient is status post left hip replacement. CT/CT ANGIO ABD&PEL W/O&W/DYE IMPRESSION: Status post endoluminal stent grafting. There is no evidence of perigraft leak. Residual dilatation of the [place] abdominal aorta with mural thrombus. Electronically Signed: Chapito Burt MD at 15:48 EDT ,
[2021-11-12 14:06] LABS: CREATININE FINGERSTICK < 0.9 mg/dL (0.70-1.30); EGFR FINGERSTICK > 60.0000 mL/min (>60)
== END | disposition home or self-care (01) ==
LOC: CT 13:15
PROVIDERS: PCP Family Medicine; Visit Provider Surgery Vascular Surgery
DX: I71.40 Abdominal aortic aneurysm, without rupture, unspecified (principal); I10 Essential (primary) hypertension; E78.70 Disorder of bile acid and cholesterol metabolism, unspecified; Z85.05 Personal history of malignant neoplasm of liver
CPT/HCPCS: 74174; Q9967

== ENCOUNTER → 2021-12-19 | Outpatient (CLI) | payer MEDICARE, OTHER, SELFPAY ==
--- NOTE | 2021-12-19 12:51 | CDU_ITS ---
Reason For Study: carotid stenosis Rt. Velocities/BP Lt. Velocities/BP Prox CCA 86.1/12.4 cm/sec. Prox CCA 109.4/18.1 cm/sec. Mid CCA 90.5/16.8 cm/sec. Mid CCA 109.4/25.4 cm/sec. Dist CCA 91.6/13.5 cm/sec. Dist CCA 100.3/18.1 cm/sec. Prox ICA 68.8/14.9 cm/sec. Prox ICA 347.6/32.0 cm/sec. Mid ICA 132.6/24.8 cm/sec. Mid ICA 81.7/15.8 cm/sec. Dist ICA 130.8/26.7 cm/sec. Dist ICA 73.4/16.8 cm/sec. Rt. ICA/CCA = 132.6/90.5=1.46. Lt. ICA/CCA = 347.6/109.4=3.18. Prox ECA 148.5/13.1 cm/sec. Prox ECA 297.7/19.2 cm/sec. Vertebral A is bidirectional. Lt. Vert. 82.6/16.8 cm/sec. Right Extracranial There is heterogeneous, smooth atherosclerotic plaque noted in the right common carotid artery. There is heterogeneous, irregular atherosclerotic plaque noted in the right internal carotid artery. The right internal carotid artery is very tortuous. There is heterogeneous, irregular atherosclerotic plaque noted in the right external carotid artery. Vertebral A is bidirectional. Left Extracranial There is heterogeneous, irregular atherosclerotic plaque noted in the left common carotid artery. There is heterogeneous, irregular atherosclerotic plaque noted in the left internal carotid artery. There is heterogeneous, smooth atherosclerotic plaque noted in the left external carotid artery. Antegrade flow is noted in the left vertebral artery. Procedure Carotid Duplex 97502. This is a Carotid Duplex examination using B-mode, color flow and specral Doppler. The study was technically difficult. Exam performed in department. VL/Carotid Duplex Ultrasound Interpretation Summary Moderate (50-69%) stenosis right extracranial internal carotid. Severe (>70%) s tenosis left extracranial internal carotid. Flow within the right verterbral artery is bidir ectional, consistent with a subclavian steal phenomenon. Flow within the left verterbral artery is a ntegrade. Ordering Physician: Vitaliy Loredo Referring Physician: Vitaliy Loredo Performed By: Joann Narayan, NASH, RVT
== END | disposition home or self-care (01) ==
LOC: CVS 12:46
PROVIDERS: PCP Family Medicine; Referring Provider Family Medicine; Visit Provider Family Medicine
DX: I65.23 Occlusion and stenosis of bilateral carotid arteries (principal); R09.89 Other specified symptoms and signs involving the circulatory and respiratory systems
CPT/HCPCS: 93880

== ENCOUNTER → 2022-06-13 | Outpatient (CLI) | payer MEDICARE, OTHER, SELFPAY ==
[2022-06-13 15:21] LABS: Absolute Lymphocyte Count 1.26 X10^3/uL (0.83-4.51); Absolute Neutrophil Count 2.9 X10^3/uL (2.0-7.7); Basophil# 0.04 X10^3/uL; Basophil% 0.8 % (0-1); Eosinophil# 0.15 X10^3/uL; Eosinophils% 3.1 % (0-5); Hematocrit 41.5 % (40-54); Hemoglobin 13.6 g/dL (13.0-16.5); Lymphocyte # 1.26 X10^3/ul (0.83-4.51); Lymphocyte % 26.3 % (19-41); Mean Corp Hgb Conc 32.8 g/dL (32-36); Mean Corpuscular Hgb 32.4 pg (27.0-32.0); Mean Corpuscular Volume 98.8 fL (80-94); Mean Platelet Vol. 10.7 fl (6.2-12.0); Monocyte% 8.3 % (0-10); NRBC Flagged by Analyzer 0 % (0-5); Neutrophil # 2.94 X10^3/uL (2.7-7.7); Neutrophil % 61.3 % (47-70); POSITIVE COUNT YES; Platelet Count 86 K/mm3 (150-450); RBC Distribution Width CV 14.6 % (11.6-14.6); White Blood Count 4.8 K/mm3 (4.4-11.0)
[2022-06-13 15:25] LABS: Differential Indicated SCAN CRITERIA MET
[2022-06-13 15:44] LABS: Platelet Estimate MOD DEC (ADEQ)
[2022-06-13 15:58] LABS: ALB/GLOB Ratio 0.7 RATIO (0.9-2.4); AST(SGOT) 43 U/L (15-37); Alanine Aminotransfer ALT/SGPT 51 U/L (16-61); Albumin, Serum 3.3 g/dL (3.2-5.0); Alkaline Phosphatase 105 U/L (45-117); Anion Gap 8 (5-15); BUN 14 mg/dL (7-18); BUN/Creat Ratio 15.6 RATIO (10-20); Calcium,Total 8.9 mg/dL (8.5-10.1); Chloride 108 mmol/L (98-107); EST Glomerular Filtration Rate 88 mL/min (>60); Est Glom Filt Rate - Afr Amer 107 mL/min (>60); Globulin 4.9 g/dL (2.2-4.2); Glucose 151 mg/dL (74-106); PSA,Total- Diagnostic 0.13 ng/mL (0.0-4.0); Protein, Total 8.2 g/dL (6.4-8.2); Sodium Level 138 mmol/L (136-145)
[2022-06-13 16:13] LABS: Microalbumin,Random Urine < 5.0 mg/L (NO RANGE EST.)
== END | disposition home or self-care (01) ==
LOC: MFPLAB 12:09
PROVIDERS: PCP Family Medicine; Visit Provider Family Medicine
DX: K74.60 Unspecified cirrhosis of liver (principal); E11.22 Type 2 diabetes mellitus with diabetic chronic kidney disease; Z12.5 Encounter for screening for malignant neoplasm of prostate
CPT/HCPCS: 36415; 80053; 82043; 82570; 84153; 85025; G0103

== ENCOUNTER → 2022-06-17 | Outpatient (CLI) | payer MEDICARE, OTHER, SELFPAY ==
--- NOTE | 2022-06-17 13:47 | CDU_ITS ---
Reason For Study: Stenosis Rt. Velocities/BP Lt. Velocities/BP Prox CCA 85.1/15.1 cm/sec. Prox CCA 93.7/20 cm/sec. Mid CCA 110.9/18.8 cm/sec. Mid CCA 82.6/18.8 cm/sec. Dist CCA 90/20 cm/sec. Dist CCA 87.6/17.6 cm/sec. Prox ICA 141.2/29.8 cm/sec. Bulb, 315/60 cm/sec. Mid ICA 132.1/18.8 cm/sec. Prox ICA 315/36.5 cm/sec. Dist ICA 115.6 cm/sec. Mid ICA 106.5/17 cm/sec. Rt. ICA/CCA = 1.57. Dist ICA 69.6/17.9 cm/sec. Prox ECA 174.1/18.2 cm/sec. Lt. ICA/CCA = 3.60. Prox ECA 321.7/33.9 cm/sec. Lt. Vert. 57.9/9.7 cm/sec. Right Extracranial There is heterogeneous, irregular atherosclerotic plaque noted in the right common carotid artery. There is heterogeneous, irregular atherosclerotic plaque noted in the right internal carotid artery. There is heterogeneous, irregular atherosclerotic plaque noted in the right external carotid artery. Bidirectional flow noted in the right vertebral artery noted. Left Extracranial There is heterogeneous, irregular atherosclerotic plaque noted in the left common carotid artery. There is heterogeneous, irregular atherosclerotic plaque noted in the left internal carotid artery. There is heterogeneous, irregular atherosclerotic plaque noted in the left external carotid artery. Antegrade flow is noted in the left vertebral artery. VL/Carotid Duplex Ultrasound Interpretation Summary Moderate (50-69%) stenosis right extracranial internal carotid. Severe (>70%) s tenosis left extracranial internal carotid. Flow within the right verterbral artery is bidir ectional, consistent with a subclavian steal phenomenon. Flow within the left verterbral artery is a ntegrade. Ordering Physician: Chaka Shelley Referring Physician: Vitaliy Loredo MD Performed By: Lucía Wilkins RVT
== END | disposition home or self-care (01) ==
LOC: CVS 13:45
PROVIDERS: PCP Family Medicine; Referring Provider Surgery Vascular Surgery; Visit Provider Surgery Vascular Surgery
DX: I65.23 Occlusion and stenosis of bilateral carotid arteries (principal)
CPT/HCPCS: 93880

== ENCOUNTER → 2023-02-27 | Outpatient (CLI) | payer MEDICARE, OTHER, SELFPAY ==
--- NOTE | 2023-02-27 08:06 | CDU_ITS ---
Reason For Study: Carotid Stenosis Rt. Velocities/BP Lt. Velocities/BP Prox CCA 137.7/24.6 cm/sec. Dist CCA 76.9/22.8 cm/sec. Mid CCA 102.1/21.3 cm/sec. Mid CCA 78.1/21.6 cm/sec. Dist CCA 115.1/27.8 cm/sec. Prox CCA 106.3/25.3 cm/sec. Prox ICA 321.0/52.7 cm/sec. Prox ICA 414.3/74.4 cm/sec. Mid ICA 220.8/43.0 cm/sec. Mid ICA 118.2/19.7 cm/sec. Dist ICA 73.8/16.5 cm/sec. Dist ICA 89.7/17.1 cm/sec. Rt. ICA/CCA = 3.2. Lt. ICA/CCA = 5.3. Prox ECA 218.5/39.7 cm/sec. Prox ECA 424.0/58.7 cm/sec. Rt. Vert. 33.6/15.7 cm/sec. Lt. Vert. 108.9/14.5 cm/sec. Right Extracranial There is heterogeneous, irregular atherosclerotic plaque noted in the right common carotid artery. There is heterogeneous, irregular atherosclerotic plaque noted in the right internal carotid artery. There is heterogeneous, irregular atherosclerotic plaque noted in the right external carotid artery. Antegrade flow is noted in the right vertebral artery. There is heterogeneous, irregular atherosclerotic plaque noted in the right bulb. Left Extracranial There is heterogeneous, irregular atherosclerotic plaque noted in the left common carotid artery. There is heterogeneous, irregular atherosclerotic plaque noted in the left internal carotid artery. The atherosclerotic plaque causes acoustic shadowing. There is heterogeneous, irregular atherosclerotic plaque noted in the left external carotid artery. Antegrade flow is noted in the left vertebral artery. There is heterogeneous, irregular atherosclerotic plaque noted in the left bulb. Procedure Carotid Duplex 20112. This is a Carotid Duplex examination using B-mode, color flow and specral Doppler. The exam was diagnostic. Exam performed in department. VL/Carotid Duplex Ultrasound Interpretation Summary Severe (>70%) stenosis right extracranial internal carotid. Severe (>70%) steno sis left extracranial internal carotid. Flow within the vertebral arteries is antegrade bilaterally. Ordering Physician: Chaka Shelley Referring Physician: Vitaliy Loredo MD Performed By: Ruel Alvarado RVT
--- NOTE | 2023-02-27 08:06 | AAVD_ITS ---
Reason For Study: HX Aortic Endograft Aorta Measurements Aorta Doppler Measurements Proximal aorta measures1.79 x 1.92cm. in cross- Peak systolic flow velocities within the proximal sectional axis. aorta measure 70.5 cm/sec. Proximal aorta measures1.85cm. in longitudinal axis. Mid Aorta residual sac: 4.96cm x 4.97cm x 4.40cm Prox Lt Limb , 1.44cm x 1.51cm x 1.42cm PSV = 52.4cm/s Prox Rt Limb, 1.34cm x 1.46cm x 1.49cm PSV = 48.7cm/s Distal Lt Limb, 1.30cm x 1.45cm x 1.44cm PSV =64.5cm/s Distal Rt Limb , 1.23cm x 1.44cm x 1.20cm PSV = 90.4cm/s Rt Limb Dist Anastomosis PSV= 194.9cm/s Lt Limb Dist Anastomosis PSV= Unable to visualize. Left Iliac Artery Left iliac artery measures 1.44 x 1.47 cm. in the cross-sectional axis. Left iliac artery measures 1.51 cm. in the longitudinal axis. Peak systolic velocity in the left iliac artery measures 49.1 cm/sec. Right Iliac Artery Right iliac artery measures 1.49 x 1.56 cm. in the cross-sectional axis. Right iliac artery measures 1.46 cm. in the longitudinal axis. Peak systolic velocity in the right iliac artery measures 145.5 cm/sec. Procedure Aorta IVC Iliac vasculature or bypass grafts 40750. The exam was of poor technical quality due to Patient not NPO / Bowel Gas / Body Habitus. Exam performed in department. VL/Abd Aortic/IVC Duplex scan Interpretation Summary No endoleak with residual sac 5cm. No stenosis where visualized of endograft. Ordering Physician: Chaka Shelley Referring Physician: Vitaliy Loredo Performed By: Ruel Alvarado RVT
--- NOTE | 2023-02-27 08:06 | ART_ITS ---
Reason For Study: PVD Procedure A bilateral lower extremity continuous wave Doppler with analog waveform analysis and ankle brachial indexes. Left Segmental Pressures Left brachial= 167mmHg. Left posterior tibial artery = 161mmHg. Left dorsalis pedis artery = 139mmHg. Left digit = 113 mmHg. The left posterior tibial artery waveforms are biphasic. The left dorsalis pedis waveforms are biphasic. Right Segmental Pressures Right brachial= 151mmHg. Right posterior tibial artery = 194mmHg. Right dorsalis pedis artery = 193mmHg. Right digit = 171 mmHg. The right posterior tibial artery waveforms are triphasic. The right dorsalis pedis waveforms are triphasic. Indices The right ankle brachial index by the posterior tibial artery is 1.16. The right ankle brachial index by the dorsalis pedis is 1.16. The right digital-brachial index is 1.02. The left ankle brachial index by the posterior tibial artery is 0.96. The left ankle brachial index by the dorsalis pedis is 0.83. The left digital-brachial index is 0.68. VL/Ankle Brachial Index Interpretation Summary Normal at rest with IVONNE 1.16 and 0.96. Ordering Physician: Chaka Shelley Referring Physician: Vitaliy Loredo MD Performed By: Ruel Alvarado RVT
--- OUTSIDE RECORDS SUMMARY | 2023-02-27 08:08 | XMS RPT_ITS | CCD ---
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 Name Role Phone Luh Loredo Unavailable MD Stevan, Lacho Martinez Unavailable Humera POWERS, Agnes Sorto Unavailable Unavailable Chaka Shelley Unavailable Unavailable Oumou Loredo Unavailable Unavailable Chaka Shelley Unavailable Unavailable Oumou Loredo Unavailable Unavailable Chaka Shelley Unavailable Unavailable GIO Esparza, Emmanuelle Herr Unavailable Unavailabl e Nataliya Gunter Unavailable Unavailable Oumou Loredo MD Primary Care Provider Oumou Loredo MD Primary Care Provider LOUIE RODRIGUEZ Referring Unavailable JOCELYN GOLDSMITH Attending Unavailable OUMOU LOREDO Primary Care Unavailable Oumou Loredo MD Primary Care Provider [phone] OUMOU LOREDO Primary Care Unavailable LOUIE RODRIGUEZ Attending Unavailable LOUIE RODRIGUEZ Referring Unavailable OUMOU LOREDO Primary Care Unavailable OUMOU LOREDO Primary Care Unavailable LOUIE RODRIGUEZ Attending Unavailable LOUIE RODRIGUEZ Referring Unavailable OUMOU LOREDO Primary Care Unavailable LOUIE RODRIGUEZ Referring Unavailable OUMOU LOREDO Primary Care Unavailable Allergies Allergy Classification Reported Allergen(s) Allergy Type Date of Onset Reaction(s) Facility (12 sources) Cat; Translations: [CATS] Allergy to substance 3 Swelling, Other: See Comments [facility] Medications Current Medications Medication Drug Class(es) Dates Sig (Normalized) Sig (Original) nadolol 20 mg oral tablet (2 sources) beta-Adrenergic Yolande Start: 08-08-2022 End: 02-08-2023 take 1 tablet by mouth once daily nadolol (CORGARD) 20 mg tablet Take 1 tablet by mouth once daily. 90 tablet 1 08/12/2022 02/08/2023 Active Completed/Discontinued Medications Medication Drug Class(es) Dates Sig (Normalized) Sig (Original) acetaminophen 325 mg / oxyCODONE hydrochloride 5 mg oral tablet (6 sources) Opioid Agonist Start: 02-21-2016 take 1 tablet by mouth every four hours as needed oxyCODONE-acetami nophen (PERCOCET) 5-325 mg tablet Take 1 tablet by mouth every 4 hours as needed for Pain. 30 tablet 0 02/21/2016 Active Problems Active Problems Problem Classification Problem Date Documented Da te Episodic/Chronic Aortic; peripheral; and visceral artery aneurysms (6 sources) Abdominal aortic aneurysm, without rupture; Translations: [Abdominal aortic aneurysm, without rupture] Onset: 07-29-2016 07-29-2016 Chronic Asthma (10 sources) Asthma; Translations: [Unspecified asthma, uncomplicated] Onset: 07-31-2005 02-16-2016 Chronic Diabetes mellitus with complications (1 source) Type 2 diabetes mellitus with other specified complication; Translations: [Diabetes mellitus associated with hormonal etiology (HCC)] Onset: 02-17-2023 Chronic Diabetes mellitus without complication (1 source) Type 2 diabetes mellitus without complications; Translations: [Type 2 diabetes (HCC)] Onset: 02-17-2023 Chronic Disorders of lipid metabolism (17 sources) Hyperlipidemia; Translations: [Hyperlipidemia, unspecified] Onset: 07-31-2005 07-29-2016 Chronic Essential hypertension (16 sources) Hypertensive disorder; Translations: [Benign essential hypertension] Onset: 07-31-2005 07-29-2016 Chronic Hepatitis (8 sources) Cirrhosis - non-alcoholic; Translations: [Nonalcoholic steatohepatitis (MILNER)] Onset: 10-21-2022 Chronic Osteoarthritis (20 sources) Localized osteoarthrosis; Translations: [Unilateral primary osteoarthritis, unspecified hip] Onset: 03-22-2005 03-22-2005 Chronic Other gastrointestinal disorders (1 source) Personal history of other diseases of the digestive system; Translations: [History of esophageal varices] Onset: 08-08-2022 Episodic Other gastrointestinal disorders (2 sources) History of esophageal varices; Translations: [Personal history of other diseases of the digestive system] 07-11-2022 Episodic Other liver diseases (1 source) Other cirrhosis of liver; Translations: [Other cirrhosis of liver (HCC)] Onset: 02-17-2023 Chronic Other liver diseases (1 source) Unspecified cirrhosis of liver; Translations: [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)] Onset: 10-21-2022 Chronic Other nutritional; endocrine; and metabolic disorders (6 sources) Body mass index (BMI) 34.0-34.9, adult; Translations: [Body mass index (BMI) 34.0-34.9, adult] Onset: 07-29-2016 07-29-2016 Chronic Other upper respiratory disease (10 sources) Allergic rhinitis; Translations: [Allergic rhinitis, unspecified] Onset: 07-31-2005 07-31-2005 Chronic Residual codes; unclassified (10 sources) Sleep apnea; Translations: [Sleep apnea, unspecified] Onset: 07-31-2005 07-31-2005 Chronic Unclassified (4 sources) Preoperative cardiovascular examination ; Translations: [Encounter for preprocedural cardiovascular examination] Onset: 07-29-2016 07-29-2016 Unclassified (1 source) Unknown / UNK(Unknown) Onset: 08-21-2016 Past or Other Problems Problem Classification Problem Date Documented Da te Episodic/Chronic Abdominal hernia (10 sources) Umbilical hernia; Translations: [Umbilical hernia without obstruction or gangrene] Onset: 02-29-2016 02-29-2016 Episodic Other and unspecified benign neoplasm (10 sources) Benign neoplasm of rectum and anal canal; Translations: [Benign neoplasm of rectum] Onset: 09-06-2009 09-06-2009 Episodic Other connective tissue disease (10 sources) Trochanteric bursitis of left hip; Translations: [Trochanteric bursitis, left hip] Onset: 01-27-2017 01-27-2017 Episodic Other screening for suspected conditions (not mental disorders or infectious disease) (10 sources) Liver function tests abnormal; Translations: [Abnormal results of liver function studies] Onset: 06-03-2008 06-03-2008 Episodic Spondylosis; intervertebral disc disorders; other back problems (20 sources) Sciatica; Translations: [Other specified dorsopathies, lumbar region] Onset: 01-27-2017 01-27-2017 Episodic Unclassified (1 source) AAA Onset: 08-21-2016 Results Test Name Value Interpretation Reference Range Facil ity Vital Signs Date Time Vital Sign Value Performing Clinician Faci lity 08-08-2022 12:50-0400 Diastolic blood pressure 85 mm[Hg] Louie Rodriguez MD Work Phone: [facility] 08-08-2022 12:50-0400 Heart rate 66 /min Louie Rodriguez MD Work Phone: [facility] 08-08-2022 12:50-0400 Respiratory rate 15 /min Louie Rodriguez MD Work Phone: [facility] 08-08-2022 12:50-0400 SaO2% (BldA) [Mass fraction] 96 % Louie Rodriguez MD Work Phone: [facility] 08-08-2022 12:50-0400 Systolic blood pressure 130 mm[Hg] Louie Rodriguez MD Work Phone: [facility] 08-08-2022 12:30-0400 Body temperature 97.5 [degF] Louie Rodriguez MD Work Phone: [facility] 08-08-2022 11:08-0400 Body weight 108.41 kg Louie Rodriguez MD Work Phone: [facility] 07-30-2016 15:50-0400 BMI (Body Mass Index) 35.15 kg/m2 MD [facility] Work Phone: 07-30-2016 15:50-0400 BP Diastolic 70 mm[Hg] Lacho Calles MD [facility] Work Phone: 07-30-2016 15:50-0400 BP Systolic 150 mm[Hg] MD [facility] Work Phone: 07-30-2016 15:50-0400 Height 177.8 cm MD [facility] Work Phone: 07-30-2016 15:50-0400 Pulse (Heart Rate) 68 /min MD [facility] Work Phone: 07-30-2016 15:50-0400 Respiratory Rate 20 /min MD [facility] Work Phone: 07-30-2016 15:50-0400 Weight 111.13 kg MD [facility] Work Phone: Encounters Encounter Date Encounter Type Care Provider Facility Start: 02-17-2023 End: 02-18-2023 ambulatory LOUIE RODRIGUEZ Facility:[facility] Start: 11-13-2022 End: 11-13-2022 ambulatory OUMOU LOREDO Facility:[facility] Start: 11-05-2022 Telephone encounter Louie ramirez MD Work Phone: Gastroenterology Procedures Date Procedure Procedure Detail Performing Clinician Start: 08-14-2022 Us abdominal real time w/image limited Louie Rodriguze MD Work Phone: Start: 08-08-2022 Esophagoscp rig transoral hypopharynx crv esoph Louie Rodriguez MD Work Phone: Start: 08-08-2022 Gluc bld gluc mntr dev cleared fda spec home use Jocelyn Goldsmith HAY 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 OPERATOR.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 PLANER TENDER Work Phone: Start: 07-04-2021 Us abdominal real time w/image limited Pete Salvador MD Work Phone: Start: 07-04-2021 Lipid 1996 panel - Serum or Plasma Louie Rodriguez MD Work Phone: Start: 09-18-2020 Colonoscopy Us 2 Work Phone: Start: 07-30-2016 End: 08-06-2016 Echocardiography Lacho Calles MD Start: 07-30-2016 End: 08-06-2016 Electrocardiogram, complete Lacho Calles MD Start: 07-30-2016 End: 08-06-2016 Nuclear stress test -exercise Lacho Calles MD Start: 07-29-2016 Preoperative cardiovascular examination Preoperative cardiovascular evaluation Emmanuelle Esparza RN Plan of Treatment Date Care Activity Detail Author Start: 05-01-2033 Urine microalbumin profile DTaP,Tdap,Td Vaccine (3 - Td or Tdap) [facility] Start: 07-04-2026 Lipid 1996 panel - Serum or Plasma Lipid Screening [facility] Start: 07-04-2026 LIPID SCREEN LIPID SCREEN [facility] Start: 10-21-2025 Diabetes Screening Diabetes Screening [facility] Start: 09-18-2025 Colonoscopy COLONOSCOPY [facility] Start: 09-18-2025 COLORECTAL CANCER SCREENING COLORECTAL CANCER SCREENING [facility] Start: 01-14-2025 DIABETES SCREEN DIABETES SCREEN [facility] Start: 07-04-2024 DIABETES SCREEN DIABETES SCREEN [facility] Start: 12-11-2022 Hepatitis B Vaccine (3 of 3 - Risk 3-dose series) Hepatitis B Vaccine (3 of 3 - Risk 3-dose series) [facility] Start: 10-11-2022 Covid-19 Vaccine ( season) Covid-19 Vaccine ( season) [facility] Start: 10-11-2022 Influenza vaccination [facility] Start: 07-11-2022 End: 08-09-2022 CBC panel - Blood by Automated count CBC Lab Routine 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) Expected: 07/11/2022 (Approximate), Expires: 08/09/2022 [facility] Work Phone: Immunizations Immunization Date Immunization Notes Care Provider Fernando espinal 12-04-2021 influenza virus vaccine, unspecified formulation Louie Rodriguez MD Work Phone: [facility] 12-08-2008 influenza virus vaccine, unspecified formulation Us 2 Work Phone: [facility] 06-09-2007 tetanus toxoid, redu sarah diphtheria toxoid, and acellular pertussis vaccine, adsorbed Us 2 Work Phone: [facility] Work Phone: Payers Date Payer Category Payer Private Health Insurance UNITED IRAQI UNITED IRAQI SUPPLEMENT [id number] 2021-Present [phone] [address] [place] [address] [facility] [id number] 2021 Private Health Insurance UNITED IRAQI UNITED IRAQI SUPPLEMENT [id number] 2021-Present [phone] [address] [place] [address] Ariana [id number] 2021 Private Health Insurance [id number] 2014 Medicare [id number] 2014 Medicare MEDICARE MEDICAR E A AND B [id number] 2014-Present [phone] [address] [address] [place] [address] Medicare [id number] 2014 Medicare MEDICARE MEDICAR E A AND B [id number] 2014-Present [phone] [place] [address] Medicare [id number] 2014 Medicare [id number] Social History Date Type Detail Facility Start: [facility]-23-2017 [facility] End: 07-07-2007 History of tobacco use Current smoker [facility] End: 07-07-2007 History of tobacco use Cigarette Smoker [facility] Start: 09-25-2020 Alcohol intake Current drinke r of alcohol (finding) [facility] Start: 09-18-2020 History SDOH Alcohol Comment beer a day [facility] Start: 1950 Sex Assigned At Not on file [facility] Start: 01-23-2017 End: 07-01-2022 Cigarettes smoked current (pack per day) - Reported 1 [facility] Start: 01-23-2017 Tobacco use and exposure Smoke less tobacco non-user [facility] Start: 09-25-2020 End: 07-01-2022 Tobacco use panel [facility] National Score (1-10 0), lower number is lower risk 64 [facility] Medical Equipment Procedure Code Equipment Code Equipment Origin al Text Equipment Identifier Dates Patch Ventralex St Sepra Sorbaflex 3.2in Large Amagon Polypropylene - [id number] Start: 02-21-2016 Clinical Notes 09-01-2020 to 11-05-2022 Telephone Encounter - Rayna Foster RN - 11/05/2022 10:16 AM EDTTelephone Encounter - Rayna Foster RN - 11/05/2022 10:15 AM EDTSLouie darnell MD - 08/08/2022 10:15 AM EDT Note Date & Type Note Facility 11-05-2022 Miscellaneous Notes Formattin g of this note might be different from the original. Attempted to call pt. No answer. Left detailed message on pt personal VM with results Advised to call back with any questions. ----- Message from Louie Rodriguez MD sent at 10/31/2022 8:47 PM EDT ----- Stable labs. MELD 7. documented in this encounter [facility] 08-08-2022 History and physi sharee note REASON FOR VISIT: EGD HPI: Narciso Wall is a 72-year-old male with a history of MILNER cirrhosis who presents for variceal screening EGD. Last EGD in 2019 was normal with the exception of mild PHG. I have confirmed and edited, if necessary, the PFSH obtained by others. REVIEW OF SYSTEMS CONSTITUTIONAL: Negative for unintentional weight loss, malaise or fevers HEENT: Negative for frequent/significant headaches, changes in hearing/vision, nose bleeds or other nasal problems RESPIRATORY: Negative for cough, hemoptysis, wheezing or dyspnea CARDIOVASCULAR: Negative for chest pain, palpitations, syncope or lightheadedness GI: See HPI : Negative for dysuria, polyuria, incontinence or hematuria MUSCULOSKELETAL: Negative for arthralgia or myalgia INTEGUMENTARY/SKIN: Negative for rash or skin lesion HEMATOLOGY/LYMPHOLOGY: Negative for prolonged bleeding, easy bruising or swollen nodes ENDOCRINE: Negative for cold/heat intolerance, polydipsia or goiter NEURO: Negative for encephalopathy, tremor or gait abnormality PSYCH: Negative for new changes in mood or affect ALLERGIES Allergen Reactions Cats Swelling, Other: See Comments asthma PAST MEDICAL HISTORY Diagnosis Date ALLERGIC RHINITIS NOS 07/31/2005 Arthritis Asthma ASTHMA UNSPECIFIED 07/31/2005 BENIGN NEOPLASM LG BOWEL 07/31/2005 colon polyp Benign neoplasm of colon 07/31/2005 colon polyp Diverticulosis DM (diabetes mellitus) (HCC) Essential hypertension, benign GENERAL OSTEOARTHROSIS 08/07/2005 Left hip. HTN (hypertension) HYPERLIPIDEMIA NEC/NOS 07/31/2005 Tobacco use disorder 08/07/2005 Umbilical hernia 02/21/2016 Unspecified sleep apnea PAST SURGICAL HISTORY Procedure Laterality Date AAA ENDO REP W/MOD BIF-1 LIMB 2018 has a stent COLONOSCOP W/ OR W/O [facility] SPEC 03/14/2003 Colonoscopy COLONOSCOP W/ OR W/O [facility] SPEC 09/06/2009 Colonoscopy COLONOSCOP W/ OR W/O [facility] SPEC 09/18/2020 HERNIA REPAIR HX JOINT REPLACEMENT HX REPAIR UMBILICAL RYAN,5+Y/O,REDUC 02/21/2016 SIGMOIDOSCOPY FLEX DIAG 10/12/2009 Sigmoidoscopy, flexible STENT 08/10/2016 TOTAL HIP REPLACEMENT 07/2007 Hip replacement, total, Left VASCULAR SURGERY PROCEDURE FAMILY HISTORY Problem Relation Age of Onset Stroke Mother Hypertension Mother Ischemic Heart Disease Mother ID at 65 Colon Cancer Mother diagnosed age 50 Cancer Father of lung cancer at 68 Diabetes Father type 1 Arthritis Sister rheumatoid Social History Tobacco Use Smoking status: Former Packs/day: 1.00 Years: 30.00 Pack years: 30.00 Types: Cigarettes Quit date: 07/07/2007 Years since quittin.0 Smokeless tobacco: Never Vaping Use Vaping Use: Never used Substance Use Topics Alcohol use: Yes Comment: beer a day Drug use: No Current Outpatient Medications Medication Sig FARXIGA 10 mg tablet Take 10 mg by mouth once daily. ergocalciferol, vitamin D2, 50 mcg (2,000 unit) cap Take 2,000 Units by mouth once daily. ketoconazole (NIZORAL) 2 % cream Multivitamin capsule Take 1 capsule by mouth once daily. ALBUTEROL 90 MCG/ACTUATION AEROSOL INHALER Inhale one(1) - two(2) puffs four(4) times a day as needed for wheezing and shortness of breath. No current facility-administered medications for this encounter. PHYSICAL EXAM: BP 146/106 Pulse 65 Temp 36.3 C (97.4 F) (Temporal) Resp 18 Wt 108.4 kg (239 lb) SpO2 96% BMI 34.29 kg/m Gen: Comfortable in NAD Head: Normocephalic, atraumatic Skin: No jaundice, rashes or skin lesions Eyes: Sclera anicteric, conjunctiva pink Neck: Supple, no palpable lymphadenopathy or goiter Heart: RRR, no murmurs, rubs or gallops Lungs: CTAB, non-labored breathing Abd: Soft, non-distended, non-tender, bowel sounds present, no palpable masses or organomegaly Ext: No lower extremity edema, clubbing or cyanosis. Extremities are warm and well-perfused Neuro: Alert and oriented, no tremor or focal motor deficits Psych: Congruent mood and affect, appropriate insight and judgement ASSESSMENT Variceal screening PLAN EGD documented in this encounter [facility] 07-18-2022 Miscellaneous Notes Formattin g of this note might be different from the original. Spoke to patient he is scheduled for 08/[address] [facility] [address] Rodriguez Left message on voicemail for patient to call back and schedule EGD with Dr. Rodriguez Orders signed. Thank you I spoke with patient regarding scheduling EGD at [facility]. He is agreeable and would like to have Dr. Rodriguez do his EGD. I offered f/u on 11/13/22 at 1130, he is good with this apt PSS team: please add to schedule EOH: please call to schedule EGD. Dr. Rodriguez please sign orders. Antonette Costa RN Pt needs to have EGD, he has hx of varices will need banded. Pt is thinking about doing at [place], will need new order. I will call again to discuss. Antonette Costa RN documented in this encounter [facility] 01-21-2022 History of Presen t illness Narrative Virtual visit with patient consent Sagart/Rachelle MILNER with [facility] last visit July when I concluded: Interval No clinical events. Had carotid us and told there was a partial blockage. He is seeing vascular surgeon about this No signs or symptoms of hepatic decompensation He has declined statins and BB last EGD 2019 no varices labs 12.5 Component Latest Ref Rng & Units 01/14/2022 Protein, Total 6.3 - 8.0 g/dL 7.9 Albumin 3.9 - 4.9 g/dL 3.9 Calcium 8.5 - 10.2 mg/dL 8.7 Bilirubin, Total 0.2 - 1.3 mg/dL 0.7 Alkaline Phosphatase 38 - 113 U/L 97 AST 14 - 40 U/L 54 (H) ALT 10 - 54 U/L 55 (H) Glucose 74 - 99 mg/dL 123 (H) BUN 9 - 24 mg/dL 10 Creatinine 0.73 - 1.22 mg/dL 0.72 (L) Sodium 136 - 144 mmol/L 138 Potassium 3.7 - 5.1 mmol/L 3.7 Chloride 97 - 105 mmol/L 104 CO2 22 - 30 mmol/L 22 Anion Gap 9 - 18 mmol/L 12 eGFR >=60 mL/min/1.73m 97 PT Sec 9.7 - 13.0 sec 11.4 PT INR 0.9 - 1.3 1.1 US 12.6 no mass or ascites platelets 106 K Exam: alert NAD neuro: no AMS Impression: MILNER cirrhosis with [facility], stable Rec: EGD and possible banding July 2022 labs and US July 2021 see me (V V OK) July 2022 after all testing omplete. Pete Salvador MD Impression: Compensated MILNER cirrhosis with [facility] Rec: 1. he would be well served by being on carvedilol 6.25 mg BID. He has appt with PCP Dr Loredo and will bring this up. 2. statins - he has declined (and lipids are normal) 3. new labs, US and V V with me in 6 months 4. WE discussed platelets (91K) as typical for [facility] but no cocnern beyond that. 25 min more than 50% counseling Pete Salvador MD documented in this encounter [facility] 07-25-[address] Salvador US order pended for review and approval to be scheduled in January Lorena Linares LPN July 25, 2021 2:48 PM documented in this encounter [facility] 07-23-2021 History of Presen t illness Narrative Virtual visit with patient consent myChart/Zoom Follow up MILNER cirrhosis Last visit Dec 2020 when I concluded: Impression: com[pensated MILNER cirrhosis Rec: 1. continue to optimize BP and blood sugars 2. control weight 3. discussed vitamin E 800 international unit(s) daily as a measure to decrease likelihood og progressive liver disease.He is willing. 4. new lab and US and V V in 6 months Interval: no clinical events Last imaging: US 07.04.21 Cirrhotic morphology; no mass no ascites Labs Component Latest Ref Rng & Units 07/04/2021 Protein, Total 6.3 - 8.0 g/dL 8.1 (H) Albumin 3.9 - 4.9 g/dL 3.8 (L) Calcium 8.5 - 10.2 mg/dL 9.1 Bilirubin, Total 0.2 - 1.3 mg/dL 0.8 Alkaline Phosphatase 38 - 113 U/L 93 AST 14 - 40 U/L 42 (H) ALT 10 - 54 U/L 41 Glucose 74 - 99 mg/dL 150 (H) BUN 9 - 24 mg/dL 13 Creatinine 0.73 - 1.22 mg/dL 0.75 Sodium 136 - 144 mmol/L 137 Potassium 3.7 - 5.1 mmol/L 4.3 Chloride 97 - 105 mmol/L 106 (H) CO2 22 - 30 mmol/L 20 (L) Anion Gap 9 - 18 mmol/L 11 eGFR >=60 mL/min/1.73m 96 Cholesterol, Total <200 mg/dL 188 Triglyceride <150 mg/dL 149 HDL Cholesterol >39 mg/dL 47 Non HDL Cholesterol <130 mg/dL 141 (H) Fasting Time hrs 12 VLDL Cholesterol <30 mg/dL 30 (H) TC:HDL Ratio <5.10 4.00 LDL Cholesterol <100 mg/dL 111 (H) LDL:HDL Ratio <2.54 2.36 PT Sec 9.7 - 13.0 sec 12.1 PT INR 0.9 - 1.3 1.2 Exam: looks well NAD neuro: no AMS Impression: Compensated MILNER cirrhosis with [facility] Rec: 1. he would be well served by being on carvedilol 6.25 mg BID. He has appt with PCP Dr Loredo and will bring this up. 2. statins - he has declined (and lipids are normal) 3. new labs, US and V V with me in 6 months 4. WE discussed platelets (91K) as typical for [facility] but no cocnern beyond that. 25 min more than 50% counseling Pete Salvador MD documented in this encounter [facility] 07-04-2021 History of Presen t illness Narrative Radiology Service Progress Note PATIENT NAME: Narciso Wall DATE OF SERVICE: July 04, 2021 TIME: 2:08 PM PATIENT IDENTITY VERIFICATION COMPLETED USING TWO (2) IDENTIFIERS: Name and Date of confirmed by patient verbally. FALL SCREENING: Has the patient had 2 falls in the last year or 1 fall with injury or currently using an Ambulatory Assistive Device (Walker, Cane, Wheelchair, Crutches, etc.)? No PATIENT GENDER DATA: Male PATIENT RELEVANT IMPLANT DATA REVIEWED: Not Applicable RADIOLOGY DEPARTMENT: Ultrasound PERIPHERAL IV DATA: Not applicable SIGNED BY: RT Vandana(R) July 04, 2021 2:08 PM documented in this encounter [facility] documented as of this encounter (statuses as of 07/05/2021) [facility]08-09-2021 History of Past illness Narrative* Problem Noted Date Resolved Date Screen for colon cancer 09/18/2020 09/19/19 21 Tobacco use disorder 08/07/2005 02/16/2016 Benign neoplasm of colon 07/31/2005 017 Overview: colon polyp Primary localized osteoarthrosis, lower leg 03/1303/22/2005 documented as of this encounter (statuses as of 07/23/2021) [facility] History of Past illness Narrative* Problem Noted Date Resolved Date Screen for colon cancer 09/18/2020 09/19/19 21 Tobacco use disorder 08/07/2005 02/16/2016 Benign neoplasm of colon 07/31/2005 017 Overview: colon polyp Primary localized osteoarthrosis, lower leg 03/1303/22/2005 documented as of this encounter (statuses as of 07/26/2021) [facility] History of Past illness Narrative* Problem Noted Date Resolved Date Screen for colon cancer 09/18/2020 09/19/19 21 Tobacco use disorder 08/07/2005 02/16/2016 Benign neoplasm of colon 07/31/2005 017 Overview: colon polyp Primary localized osteoarthrosis, lower leg 03/1303/22/2005 documented as of this encounter (statuses as of 07/27/2021) [facility]08-09-2021 History of Past illness Narrative* Problem Noted Date Resolved Date Screen for colon cancer 09/18/2020 09/19/19 21 Tobacco use disorder 08/07/2005 02/16/2016 Benign neoplasm of colon 07/31/2005 017 Overview: colon polyp Primary localized osteoarthrosis, lower leg /03/22/2005 documented as of this encounter (statuses as of 07/31/2021) [facility]08-09-2021 History of Past illness Narrative* Problem Noted Date Resolved Date Screen for colon cancer 09/18/2020 09/19/19 Tobacco use disorder 08/07/2005 02/16/2016 Benign neoplasm of colon 07/31/2005 017 Overview: colon polyp Primary localized osteoarthrosis, lower leg 03/1303/22/2005 documented as of this encounter (statuses as of 01/21/2022) [facility]08-[facility]-2021 History of Past illness Narrative* Problem Noted Date Diagnosed Date Resolved Date Screen for colon cancer 09/18/2020 080 10/2020 Tobacco use disorder 08/07/2005 017 Benign neoplasm of colon 07/31/200507/2016 Overview: colon polyp Primary localized osteoarthrosis, lower leg 03/22/2005 03/22/2005 documented as of this encounter (statuses as of 09/09/2022) [facility]08-09[facility]2021 History of Past illness Narrative* Problem Noted Date Diagnosed Date Resolved Date Screen for colon cancer 09/18/2020 080 10/2020 Tobacco use disorder 08/07/2005 017 Benign neoplasm of colon 07/31/200507/2016 Overview: colon polyp Primary localized osteoarthrosis, lower leg 03/22/2005 03/22/2005 documented as of this encounter (statuses as of 11/05/2022) [facility]08-[facility]2021 History of Past illness Narrative* Problem Noted Date Diagnosed Date Resolved Date Screen for colon cancer 09/18/2020 080 10/2020 Tobacco use disorder 08/07/2005 017 Benign neoplasm of colon 07/31/200507/2016 Overview: colon polyp Primary localized osteoarthrosis, lower leg 03/22/2005 03/22/2005 documented as of this encounter (statuses as of 12/15/2022) [facility]2021 History of Past illness Narrative* Problem Noted Date Diagnosed Date Resolved Date Screen for colon cancer 09/18/2020 08/0 10/2020 Tobacco use disorder 08/07/2005 01/06/2 017 Benign neoplasm of colon 07/31/200507/2016 Overview: colon polyp Primary localized osteoarthrosis, lower leg 03/22/2005 03/22/2005 documented as of this encounter (statuses as of 12/15/2022) [facility]07-23-2021 NoteHNO ID: [id number] Author: RT Alexandra(R) Service: Radiology Author Type: [employer]room[employer] Seeder Type: Progress Notes Filed: 09/01/2020 2:14 PM Note Text: Radiology Service Progress Note PATIENT NAME: Narciso Wall DATE OF SERVICE: September 01, 2020 TIME: 2:14 PM PATIENT IDENTITY VERIFICATION COMPLETED USING TWO (2) IDENTIFIERS: Name and Date of confirmed by patient verbally. FALL SCREENING: Has the patient had 2 falls in the last year or 1 fall with injury or currently using an Ambulatory Assistive Device (Walker, Cane, Wheelchair, Crutches, etc.)? 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)- Primary Other chronic nonalcoholic liver disease documented in this encounter [facility] note* Diagnosis 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)- Primary Other chronic nonalcoholic liver disease documented in this encounter [facility] note* Diagnosis 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)- Primary Other chronic nonalcoholic liver disease [facility]* Diagnosis 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)- Primary Other chronic nonalcoholic liver disease [facility]* Diagnosis 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)- Primary Other chronic nonalcoholic liver disease [facility]* Diagnosis History of esophageal varices- Primary Personal history of other diseases of digestive system documented in this encounter [facility] note* Diagnosis 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 for referral (narrative)* Diagnostic Procedure Only (Routine) - Closed Specialty Diagnoses / Procedures Referred By Contac t Referred To Contact US IMAGING Diagnoses 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) Procedures US ABD RT UPPER QUADRANT ULTRASOUND-ABDOMINAL PC Pete Salvador MD [address] [place] [address] Us Imaging Referral ID Status Reason Start Date Expiration Date V isits Requested Visits Authorized [id number] Closed Auto-Generate d Referral 06/11/2021 01/13/2022 [address] [facility] for referral (narrative)* Diagnostic Procedure Only (Routine) - Pending Review Specialty Diagnoses / Procedures Referred By Contac t Referred To Contact US IMAGING Diagnoses 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) Procedures US ABD RT UPPER QUADRANT US ABDOMINAL REAL TIME W/IMAGE LIMITED Niurka Foster PA-C [address] [place] [address] Us Imaging Referral ID Status Reason Start Date Expiration Date Visits Requested Visits Authorized [id number] Pending Review Auto-Generat ed Referral 07/26/2021 08/24/2022 [address] [facility] for referral (narrative)* Diagnostic Procedure Only (Routine) - Pending Review Specialty Diagnoses / Procedures Referred By Contac t Referred To Contact US IMAGING Diagnoses 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) Procedures US ABD RT UPPER QUADRANT US ABDOMINAL REAL TIME W/IMAGE LIMITED Pete Salvador MD [address] [place] [address] Us Imaging Referral ID Status Reason Start Date Expiration Date Visits Requested Visits Authorized [id number] Pending Review Auto-Generat ed Referral 07/11/2022 02/20/2023 1 1 * Outpatient Procedure (Routine) - Pending Review Specialty Diagnoses / Procedures Referred By Contac t Referred To Contact [facility] Diagnoses 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 for referral (narrative)* Outpatient Procedure (Routine) - Closed Specialty Diagnoses / Procedures [facility] To Contact [facility] Diagnoses History of esophageal varices Procedures EGD - THERAPEUTIC, EUS, OR TUBE INTERVENTIONS EGD BAND LIGATION ESOPHGEAL/[place] [address] [place] [address] [place] [id number] Referral ID Status Reason Start Date Expiration Date V isits Requested Visits Authorized [id number] Closed Auto-Generate d Referral 07/11/2022 07/12/2023 [address] [facility] for referral (narrative)* Diagnostic Procedure Only (Routine) - Closed Specialty Diagnoses / Procedures Referred By Contac t Referred To Contact US IMAGING Diagnoses 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) Procedures US ABD RIGHT UPPER QUADRANT US ABDOMINAL [place] W/[place] [address] [phone] Us Imaging [id number] Referral ID Status Reason Start Date Expiration Date V isits Requested Visits Authorized [id number] Closed Auto-Generate d Referral 07/01/2022 07/31/2023 [address] [facility] for referral (narrative)* Outpatient Procedure (Routine) - Closed Specialty Diagnoses / Procedures Referred By Contac t Referred To Contact [facility] Diagnoses History of esophageal varices Procedures EGD - THERAPEUTIC, EUS, OR TUBE INTERVENTIONS EGD BAND LIGATION ESOPHGEAL/[place] [address] [place] [address] [facility] [place] [address] [place], [place] [id number] Referral ID Status Reason Start Date Expiration Date V isits Requested Visits Authorized [id number] Closed Auto-Generate d Referral 07/11/2022 07/12/2023 [address] [facility] for visit Narrative* Diagnostic Procedure Only (Routine) - Closed Specialty Diagnoses / Procedures [facility] Referred To Contact US IMAGING Diagnoses 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) Procedures US ABD RT UPPER QUADRANT ULTRASOUND-ABDOMINAL PC Pete Salvador MD [address] [phone] Us Imaging Referral ID Status Reason Start Date Expiration Date V isits Requested Visits Authorized [id number] Closed Auto-Generate d Referral 06/11/2021 01/13/2022 [address] [facility] for visit Narrative* Diagnostic Procedure Only (Routine) - Closed Specialty Diagnoses / Procedures [facility] Referred To Contact US IMAGING Diagnoses 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) Procedures US ABD RIGHT UPPER QUADRANT US ABDOMINAL REAL [place] W/[place] [address] [address] [place] [phone] Us Imaging [id number] Referral ID Status Reason Start Date Expiration Date V isits Requested Visits Authorized [id number] Closed Auto-Generate d Referral 07/01/2022 07/31/2023 1 1 [facility] Summary Purpose Family History No Family History Records FoundNo Family History Records FoundNo Family History Records FoundNo Family History Records Found Advance Directives No Advanced Directives Records FoundDocuments on File Type Date Recorded Patient Muleser Expl anation Advance Directive(s) 09/18/2020 8:44 AM Advance Directive(s) 01/23/2017 12:33 PM Advance Directive(s) 02/21/2016 12:42 PM Documents on File Type Date Recorded Patient Muleser Expl anation Advance Directive(s) 09/18/2020 8:44 AM Advance Directive(s) 01/23/2017 12:33 PM Advance Directive(s) 02/21/2016 12:42 PM Additional Source Comments (unrecognized sect ion and content) No Status Records FoundNo Status Records FoundNo Status Records FoundNo Status Records Found INFORMATION SOURCE (unrecogn ized section and content) DATE CREATED AUTHOR AUTHOR'S ORGANIZ ATION 09/02/2020 [facility] DATE CREATED AUTHOR AUTHOR'S ORGANIZ ATION 08/09/2022 [facility] DATE CREATED AUTHOR AUTHOR'S ORGANIZ ATION 02/20/2023 [facility] Source Comments (unrecognize d section and content) In the event this informatio n is protected by the Federal Confidentiality of Alcohol and Drug Abuse Patient Records regulations: The Federal rules restrict any use of the information to criminally investigate or prosecute any alcohol or drug abuse patient.[facility] the event this information is protected by the Federal Confidentiality of Alcohol and Drug Abuse Patient Records regulations: The Federal rules restrict any use of the information to criminally investigate or prosecute any alcohol or drug abuse patient.[facility] the event this information is protected by the Federal Confidentiality of Alcohol and Drug Abuse Patient Records regulations: The Federal rules restrict any use of the information to criminally investigate or prosecute any alcohol or drug abuse patient.[facility] the event this information is protected by the Federal Confidentiality of Alcohol and Drug Abuse Patient Records regulations: The Federal rules restrict any use of the information to criminally investigate or prosecute any alcohol or drug abuse patient.[facility] the event this information is protected by the Federal Confidentiality of Alcohol and Drug Abuse Patient Records regulations: The Federal rules restrict any use of the information to criminally investigate or prosecute any alcohol or drug abuse patient.[facility] the event this information is protected by the Federal Confidentiality of Alcohol and Drug Abuse Patient Records regulations: The Federal rules restrict any use of the information to criminally investigate or prosecute any alcohol or drug abuse patient.[facility] the event this information is protected by the Federal Confidentiality of Alcohol and Drug Abuse Patient Records regulations: The Federal rules restrict any use of the information to criminally investigate or prosecute any alcohol or drug abuse patient.[facility] the event this information is protected by the Federal Confidentiality of Alcohol and Drug Abuse Patient Records regulations: The Federal rules restrict any use of the information to criminally investigate or prosecute any alcohol or drug abuse patient.[facility] the event this information is protected by the Federal Confidentiality of Alcohol and Drug Abuse Patient Records regulations: The Federal rules restrict any use of the information to criminally investigate or prosecute any alcohol or drug abuse patient.[facility] the event this information is protected by the Federal Confidentiality of Alcohol and Drug Abuse Patient Records regulations: The Federal rules restrict any use of the information to criminally investigate or prosecute any alcohol or drug abuse patient.[facility] Care Teams (unrecognized sec tion and content) [employer] Relationship Specialty Start Date End Date Oumou Loredo MD PCP - General 06/28/09 [employer] Relationship Specialty Start Date End Date Oumou Loredo MD PCP - General 06/28/09 [employer] Relationship Specialty Start Date End Date Oumou Loredo MD PCP - General 06/28/09 [employer] Relationship Specialty Start Date End Date Oumou Loredo MD PCP - General 06/28/09 [employer] Relationship Specialty Start Date End Date Oumou Loredo MD PCP - General 06/28/09 [employer] Relationship Specialty Start Date End Date Oumou Loredo MD PCP - General 06/28/09 [employer] Relationship Specialty Start Date End Date Oumou Loredo MD PCP - General 06/28/09 Reason for Visit (unrecogniz ed section and content) Reason Comments Orders Reason Comments Liver Disease Reason Comments Procedure Reason Comments Results Specialty Diagnoses / Procedures Referred By Contac t Referred To Contact Diagnoses Personal history of other diseases of the digestive system Procedures ESOPHAGOGASTRODUODENOSCOPY TRANSORAL DIAGNOSTIC Av Procedure [id number] [place] [address] Referral ID Status Reason Start Date Expiration Date Visits Re quested Visits Authorized [id number] 1 1 FOR RECORDS PERTAINING TO PATIENTS WHO ARE OR HAVE BEEN ENROLLED IN A CHEMICAL DEPENDENCY/SUBSTANCEABUSE PROGRAM, SOME INFORMATION MAY BE OMITTED. This clinical summary was aggregated from multiple sources. Caution should be exercised in using it in the provision of clinical care. This summary normalizes information from multiple sources, and as a consequence, information in this document may materially change the coding, format and clinical context of patient data. In addition, data may be omitted in some cases. CLINICAL DECISIONS SHOULD BE BASED ON THE PRIMARY CLINICAL RECORDS. [facility]. provides no warranty or guarantee of the accuracy or completeness of information in this document.
== END | disposition home or self-care (01) ==
PROVIDERS: PCP Family Medicine; Referring Provider Surgery Vascular Surgery; Visit Provider Surgery Vascular Surgery
DX: I65.23 Occlusion and stenosis of bilateral carotid arteries (principal); I71.43 Infrarenal abdominal aortic aneurysm, without rupture; I73.9 Peripheral vascular disease, unspecified; I10 Essential (primary) hypertension; Z95.828 Presence of other vascular implants and grafts
CPT/HCPCS: 93880; 93922; 93978